=== PATIENT | female | born 1955 | race American Indian/Alaskan Native ===

== ENCOUNTER 2017-03-27 09:54 | Emergency (ER) | payer MEDICAID ==
--- NOTE | 2017-03-27 10:14 | Emergency Department Report ---
Chief Complaint: Syncope Stated Complaint: RIGHT LEG/BACK PAIN Time Seen by Provider: 03/27/17 10:10 - HPI History of Present Illness: PT c/o josé miguel sciatic nerve pain and syncope. PT states she passed out last night and today. PT states she was at home when she had her syncopal episodes. PT c/ o dizziness - ROS Review of Systems: + R buttocks pain + left leg pain + syncope + dizziness - cp + dry cough - Exam Physical Exam: PT ambulatory in triage with steady gait. PT alert and appropriate. MSE screening note: Focused history and physical exam performed. Due to findings the following was ordered: ekg, labs, ct ED Disposition for MSE Condition: Stable
[2017-03-27 11:04] LABS: Hematocrit 37.4 % (30.3-42.9); Hemoglobin 12.6 gm/dl (10.1-14.3); Mean Corpuscular HGB Conc 34 % (30-34); Mean Corpuscular Hemoglobin 33 pg (28-32); Mean Corpuscular Volume 97 fl (79-97); Platelet Count 335 K/mm3 (140-440); Red Blood Count 3.86 M/mm3 (3.65-5.03); Red Cell Distribution Width 13.8 % (13.2-15.2)
[2017-03-27 11:08] LABS: INR 0.97 (0.87-1.13)
[2017-03-27 11:09] LABS: Partial Thromboplastin Time 28.4 Sec. (24.2-36.6)
[2017-03-27 11:10] LABS: Alanine Aminotransferase 7 units/L (7-56); Albumin 3.9 g/dL (3.9-5); Alkaline Phosphatase 85 units/L (35-129); Anion Gap 19 mmol/L; BUN/Creatinine Ratio 7.69; Blood Urea Nitrogen 10 mg/dL (7-17); Calcium 9.2 mg/dL (8.4-10.2); Carbon Dioxide 25 mmol/L (22-30); Chloride 103.6 mmol/L (98-107); Glucose 77 mg/dL (65-100); Potassium 3.7 mmol/L (3.6-5.0); Sodium 144 mmol/L (137-145); Total Protein 7.8 g/dL (6.3-8.2)
[2017-03-27 11:16] LABS: White Blood Count 2.3 K/mm3 (4.5-11.0)
--- NOTE | 2017-03-27 11:59 | Cat Scan Report ---
CT scan of head without contrast: History: Syncope. Findings: Ventricles are normal in size and midline in location. No definite evidence of acute ischemia, hemorrhage or mass. No extra-axial fluid collection. Normal brainstem and cerebellum. Normal sinuses and mastoid air cells. Impression: No acute intracranial abnormality.
[2017-03-27 12:07] LABS: Blastocytes % (Manual) 0 %; Diff Status Complete; RBC Morphology Normal
[2017-03-27] MEDS ORDERED: KEPPRA PO ONE (12:13)
--- NOTE | 2017-03-27 12:21 | Emergency Department Report ---
ED Syncope HPI - General Chief Complaint: Syncope Stated Complaint: RIGHT LEG/BACK PAIN Time Seen by Provider: 03/27/17 10:10 Source: patient - History of Present Illness Initial Comments: 61-year-old female who presents emergency Department here with complaint of syncope last night. Patient states that she felt lightheaded and dizzy and syncopized. Currently denies headache or dizziness. States that she may have had a seizure. She states that she is taking her Keppra. Denies fevers chills nausea vomiting. No chest pain. No abdominal pain. States that this is happened to her multiple times before. Timing/Prior Episodes: no prior history Precipitating Factors: Positive: none Current Symptoms: denies: chest pain, dizziness, weakness ED Review of Systems ROS: Stated complaint: RIGHT LEG/BACK PAIN Other details as noted in HPI Comment: All other systems reviewed and negative Constitutional: weakness. denies: chills, fever Eyes: denies: eye pain, eye discharge, vision change ENT: denies: ear pain, throat pain Respiratory: denies: cough, shortness of breath, wheezing Cardiovascular: syncope. denies: chest pain, palpitations Endocrine: no symptoms reported Gastrointestinal: denies: abdominal pain, nausea, diarrhea Genitourinary: denies: urgency, dysuria, discharge Musculoskeletal: denies: back pain, joint swelling, arthralgia Skin: denies: rash, lesions Neurological: denies: headache, weakness, paresthesias Psychiatric: denies: anxiety, depression Hematological/Lymphatic: denies: easy bleeding, easy bruising ED Past Medical Hx - Past Medical History Hx Renal Disease: Yes Hx Seizures: Yes Hx Psychiatric Treatment: Yes (bipolar) Additional medical history: hiv - Surgical History Past Surgical History?: Yes Additional Surgical History: hernia, - Family History Family history: no significant - Social History Smoking Status: Never Smoker Substance Use Type: None ED Physical Exam - General Limitations: No Limitations General appearance: alert, in no apparent distress - Head Head exam: Present: atraumatic, normocephalic - Eye Eye exam: Present: normal appearance, PERRL. Absent: scleral icterus, conjunctival injection - ENT ENT exam: Present: mucous membranes moist - Neck Neck exam: Present: normal inspection. Absent: lymphadenopathy - Respiratory Respiratory exam: Present: normal lung sounds bilaterally. Absent: respiratory distress - Cardiovascular Cardiovascular Exam: Present: regular rate, normal rhythm. Absent: systolic murmur, diastolic murmur, rubs, gallop - GI/Abdominal GI/Abdominal exam: Present: soft, normal bowel sounds - Extremities Exam Extremities exam: Present: normal inspection - Back Exam Back exam: Present: normal inspection - Neurological Exam Neurological exam: Present: alert, oriented X3, CN II-XII intact, normal gait. Absent: motor sensory deficit - Psychiatric Psychiatric exam: Present: normal affect, normal mood - Skin Skin exam: Present: warm, dry, intact, normal color. Absent: rash ED Course Vital Signs 03/27/17 10:12 Temperature 98.3 F Pulse Rate 90 Respiratory 18 Rate Blood Pressure 96/67 O2 Sat by Pulse 98 Oximetry ED Medical Decision Making - Lab Data Result diagrams: 03/27/17 10:29 03/27/17 10:29 Laboratory Results - last 24 hr 03/27/17 03/27/17 03/27/17 10:29 10:29 10:29 WBC 2.3 L RBC 3.86 Hgb 12.6 Hct 37.4 MCV 97 MCH 33 H MCHC 34 RDW 13.8 Plt Count 335 Add Manual Diff Complete Total Counted 100 Seg Neuts % (Manual) 51.0 Band Neutrophils % 0 Lymphocytes % (Manual) 32.0 Reactive Lymphs % (Man) 2.0 Monocytes % (Manual) 13.0 H Eosinophils % (Manual) 2.0 Metamyelocytes % 0 Myelocytes % 0 Promyelocytes % 0 Blast Cells % 0 Nucleated RBC % Not Reportable Seg Neutrophils # Man 1.2 L Band Neutrophils # 0.0 Lymphocytes # (Manual) 0.7 L Abs React Lymphs (Man) 0.0 Monocytes # (Manual) 0.3 Eosinophils # (Manual) 0.0 Basophils # (Manual) 0.0 Metamyelocytes # 0.0 Myelocytes # 0.0 Promyelocytes # 0.0 Blast Cells # 0.0 WBC Morphology Not Reportable Hypersegmented Neuts Not Reportable Hyposegmented Neuts Not Reportable Hypogranular Neuts Not Reportable Smudge Cells Not Reportable Toxic Granulation Not Reportable Toxic Vacuolation Not Reportable Dohle Bodies Not Reportable Pelger-Huet Anomaly Not Reportable Keny Rods Not Reportable Platelet Estimate Appears normal Clumped Platelets Not Reportable Plt Clumps, EDTA Not Reportable Large Platelets Not Reportable Giant Platelets Not Reportable Platelet Satelliting Not Reportable Plt Morphology Comment Not Reportable RBC Morphology Normal Dimorphic RBCs Not Reportable Polychromasia Not Reportable Hypochromasia Not Reportable Poikilocytosis Not Reportable Anisocytosis Not Reportable Microcytosis Not Reportable Macrocytosis Not Reportable Spherocytes Not Reportable Pappenheimer Bodies Not Reportable Sickle Cells Not Reportable Target Cells Not Reportable Tear Drop Cells Not Reportable Ovalocytes Not Reportable Helmet Cells Not Reportable Headley-Rimini Bodies Not Reportable Tenstrike Rings Not Reportable Mariela Cells Not Reportable Bite Cells Not Reportable Crenated Cell Not Reportable Elliptocytes Not Reportable Acanthocytes (Spur) Not Reportable Rouleaux Not Reportable Hemoglobin C Crystals Not Reportable Schistocytes Not Reportable Malaria parasites Not Reportable Cedric Bodies Not Reportable Hem Pathologist Commnt No PT 13.4 INR 0.97 APTT 28.4 Sodium 144 Potassium 3.7 Chloride 103.6 Carbon Dioxide 25 Anion Gap 19 BUN 10 Creatinine 1.3 H Estimated GFR 51 BUN/Creatinine Ratio 7.69 Glucose 77 Calcium 9.2 Total Bilirubin 0.30 AST 15 ALT 7 Alkaline Phosphatase 85 Troponin T < 0.010 Total Protein 7.8 Albumin 3.9 Albumin/Globulin Ratio 1.0 - EKG Data -: EKG Interpreted by Mi - EKG Data 03/27/17 12:17 Sinus 81 normal axis and prolonged QTc of [address]-T wave changes - Medical Decision Making 61-year-old female presents to the emergency department with complaint of syncopal episode and questionable seizure. She has had multiple visits for this in the past. She appears well here in the emergency department. Labs unremarkable. EKG no concerning features. Likely discharge. EKG unremarkable chest x-ray unremarkable head CT negative. She is low risk for syncope. Plan to discharge home with follow-up. Portions of this chart were dictated with dictation software. There may be dictation errors contained within this note. Critical care attestation.: If time is entered above; I have spent that time in minutes in the direct care of this critically ill patient, excluding procedure time. ED Disposition Clinical Impression: Syncope Disposition: DC-01 TO HOME OR SELFCARE Is pt being admited?: No Condition: Stable Instructions: Syncope (ED) Additional Instructions: Follow-up with regular doctor. Make sure you take your seizure medications daily. Referrals: PRIMARY CARE, [Primary Care Provider] - 3-5 Days
--- NOTE | 2017-03-27 14:24 | XRay Report ---
Single view chest: History: Syncope. Findings: Cardiomegaly. Trachea is midline. No consolidation, pneumothorax or pleural effusion. Impression: Cardiomegaly. No acute lung changes.
[2017-03-27 15:38] VITALS: BP 110/70
== END 2017-03-27 15:00 | disposition home or self-care (01) ==
LOC: ED 09:54
DX: R55 Syncope and collapse (principal); F31.9 Bipolar disorder, unspecified; R56.9 Unspecified convulsions
CPT/HCPCS: 36415; 70450; 71010; 80053; 84484; 85007; 85025; 85610; 85730; 93005; 93010

== ENCOUNTER 2017-09-03 11:43 | Inpatient (IN) | payer MEDICAID, OTHER ==
[2017-09-03] MEDS ORDERED: ASPIRIN PO ONE (12:17)
[2017-09-03 14:01] LABS: Basophils # (Auto) 0.1 K/mm3 (0.0-0.1); Basophils % (Auto) 0.6 % (0.0-1.8); Eosinophils % (Auto) 0.1 % (0.0-4.3); Hematocrit 35.3 % (30.3-42.9); Hemoglobin 11.6 gm/dl (10.1-14.3); Lymphocytes # (Auto) 1.6 K/mm3 (1.2-5.4); Lymphocytes % (Auto) 10.7 % (13.4-35.0); Mean Corpuscular HGB Conc 33 % (30-34); Mean Corpuscular Hemoglobin 33 pg (28-32); Mean Corpuscular Volume 102 fl (79-97); Monocytes # (Auto) 0.6 K/mm3 (0.0-0.8); Monocytes % (Auto) 4.2 % (0.0-7.3); Platelet Count 319 K/mm3 (140-440); Red Blood Count 3.47 M/mm3 (3.65-5.03); Red Cell Distribution Width 14.6 % (13.2-15.2)
[2017-09-03 14:11] LABS: BUN/Creatinine Ratio 8; Blood Urea Nitrogen 9 mg/dL (7-17); Calcium 9.5 mg/dL (8.4-10.2); Hemolysis Index 2
--- NOTE | 2017-09-03 15:21 | Emergency Department Report ---
ED Syncope HPI - General Chief Complaint: Syncope Stated Complaint: FEVER/CHILLS/WEAKNESS/BODYACHES Time Seen by Provider: 09/03/17 15:21 Source: patient Exam Limitations: no limitations - History of Present Illness Timing/Prior Episodes: no prior history, single episode today Precipitating Factors: Positive: blurred vision, lightheadedness Context: standing, coughing Loss of Consciousness: brief (seconds) Current Symptoms: blurred vision, chest pain, dizziness, headache, lightheadedness - Related Data Allergies/Adverse Reactions: Allergies No Known Allergies Allergy (Unverified 03/27/17 15:39) ED Review of Systems ROS: Stated complaint: FEVER/CHILLS/WEAKNESS/BODYACHES Other details as noted in HPI Comment: All other systems reviewed and negative Constitutional: denies: chills, fever Eyes: denies: eye pain, eye discharge, vision change ENT: denies: ear pain, throat pain Respiratory: cough, shortness of breath. denies: wheezing Cardiovascular: chest pain, palpitations Endocrine: no symptoms reported Gastrointestinal: denies: abdominal pain, nausea, diarrhea Genitourinary: denies: urgency, dysuria, discharge Musculoskeletal: denies: back pain, joint swelling, arthralgia Skin: denies: rash, lesions Neurological: headache, weakness. denies: paresthesias Psychiatric: denies: anxiety, depression Hematological/Lymphatic: denies: easy bleeding, easy bruising ED Past Medical Hx - Past Medical History Previous Medical History?: Yes Hx Renal Disease: Yes Hx Seizures: Yes Hx Psychiatric Treatment: Yes (bipolar) Additional medical history: hiv - Surgical History Past Surgical History?: Yes Additional Surgical History: hernia, - Family History Family history: hypertension - Social History Smoking Status: Never Smoker Substance Use Type: None ED Physical Exam - General Limitations: No Limitations General appearance: alert, in no apparent distress - Head Head exam: Present: atraumatic, normocephalic - Eye Eye exam: Present: normal appearance - ENT ENT exam: Present: normal exam, mucous membranes moist - Neck Neck exam: Present: normal inspection - Respiratory Respiratory exam: Present: normal lung sounds bilaterally. Absent: respiratory distress - Cardiovascular Cardiovascular Exam: Present: regular rate, normal rhythm. Absent: systolic murmur, diastolic murmur, rubs, gallop - GI/Abdominal GI/Abdominal exam: Present: soft, normal bowel sounds - Extremities Exam Extremities exam: Present: normal inspection - Back Exam Back exam: Present: normal inspection - Neurological Exam Neurological exam: Present: alert, oriented X3 - Psychiatric Psychiatric exam: Present: normal affect, normal mood - Skin Skin exam: Present: warm, dry, intact, normal color. Absent: rash ED Course Vital Signs 09/03/17 09/03/17 12:12 17:50 Temperature 98.6 F Pulse Rate 100 H Respiratory 16 18 Rate Blood Pressure 125/77 O2 Sat by Pulse 98 98 Oximetry ED Medical Decision Making - Lab Data Result diagrams: 09/03/17 13:44 09/03/17 13:44 - EKG Data -: EKG Interpreted by Ms EKG shows normal: sinus rhythm Rate: normal - EKG Data Interpretation: no acute changes, normal EKG - Radiology Data Radiology results: report reviewed No acute process on head CT and chest x-ray - Medical Decision Making Patient is a 62-year-old female that presented to the emergency room with chest pain, shortness of breath and syncope. All labs and diagnostic review the patient. Will admit patient to the hospitalist service - Differential Diagnosis cp, sob, acs, pna, cough, bronchitis Critical care attestation.: If time is entered above; I have spent that time in minutes in the direct care of this critically ill patient, excluding procedure time. ED Disposition Clinical Impression: Syncope, Chest pain, SOB (shortness of breath), Bronchitis Disposition: 09 OP ADMIT IP TO THIS HOSP Is pt being admited?: Yes Does the pt Need Aspirin: No Condition: Serious Time of Disposition: 17:40
[2017-09-03] MEDS ORDERED: ASPIRIN ONE (15:47)
--- NOTE | 2017-09-03 16:33 | Cat Scan Report ---
FINAL REPORT PROCEDURE: CT HEAD/BRAIN WO CON TECHNIQUE: Computerized tomography of the head was performed without contrast material. HISTORY: Headache, syncope COMPARISON: No prior studies are available for comparison. FINDINGS: There is no CT evidence of intracranial hemorrhage, hydrocephalus, acute territorial infarction. The intracranial arteries are symmetric in density. There is a calcified density abutting the inner table of the left frontal skull, possibly a calcified meningioma. This measures up to 9 millimeters in maximum dimension. No underlying mass effect is seen on the left frontal lobe. No acute fracture is seen. The visualized paranasal sinuses and mastoids are aerated. IMPRESSION: Probable small left frontal meningioma. No underlying mass effect. No acute abnormality is seen
--- NOTE | 2017-09-03 16:54 | XRay Report ---
FINAL REPORT PROCEDURE: XR CHEST ROUTINE 2V TECHNIQUE: PA and lateral chest radiographs were obtained. CPT 73649 HISTORY: chest pain. sob COMPARISON: No prior studies are available for comparison. FINDINGS: Heart: Normal contour. Mediastinum/Vessels: Normal. Lungs/Pleural space: No infiltrate, effusion, or pneumothorax. Bony thorax: No acute osseous abnormality. Other: IMPRESSION: No pulmonary infiltrates are identified.
[2017-09-03] MEDS ORDERED: ROCEPHIN/NS 1 GM/50 ML 1 GM/50 ML BAG IV ONE (18:13)
[2017-09-03] MEDS ORDERED: cefTRIAXone 1 GM in NACL 0.9% 20 ML IV ONE (19:00)
[2017-09-03] MEDS ORDERED: PEPCID IV ONE (19:35)
--- NOTE | 2017-09-03 22:52 | History and Physical Report ---
History of Present Illness Date of examination: 09/03/17 Date of admission: 09/03/17 18:45 Chief complaint: CC Syncope fever and chills 1 day History of present illness: History of Present Illness: 62 y/o female with hx of seizures bipolar disorder hiv presents to ER for passing out for a few seconds .Also has fever chills and body aches.Also cough headache and light headed ness.Chest pain with deep inspiration and coughing.No diaohoresis or palpitations. No exacerbating or relieving factors. Past Medical History Previous Medical History?: Yes Hx Seizures: Yes Hx Psychiatric Treatment: Yes (bipolar) Additional medical history: hiv Surgical History Past Surgical History?: Yes Additional Surgical History: hernia, Family History Family history: hypertension Social History Smoking Status: Never Smoker Substance Use Type: None Review of Systems Stated complaint: FEVER/CHILLS/WEAKNESS/BODYACHES Other details as noted in HPI Comment: All other systems reviewed and negative Constitutional: denies: chills, fever Eyes: denies: eye pain, eye discharge, vision change ENT: denies: ear pain, throat pain Respiratory: cough, shortness of breath. denies: wheezing Cardiovascular: chest pain, palpitations Endocrine: no symptoms reported Gastrointestinal: denies: abdominal pain, nausea, diarrhea Genitourinary: denies: urgency, dysuria, discharge Musculoskeletal: denies: back pain, joint swelling, arthralgia Skin: denies: rash, lesions Neurological: headache, weakness. denies: paresthesias Psychiatric: denies: anxiety, depression Hematological/Lymphatic: denies: easy bleeding, easy bruising Medications and Allergies Allergies Allergy/AdvReac Type Severity Reaction Status Date / Time No Known Allergies Allergy Unverified 03/27/17 15:39 Home Medications Medication Instructions Recorded Confirmed Last Taken Type Gabapentin [Neurontin] 300 mg PO Q8HR 09/03/17 09/03/17 Unknown History Quetiapine Fumarate [Seroquel Xr] 600 mg PO QHS 09/03/17 09/03/17 Unknown History Ranitidine HCl [Heartburn Relief] 150 mg PO BID 09/03/17 09/03/17 Unknown History Trazodone HCl [traZODone] 300 mg PO QHS 09/03/17 09/03/17 Unknown History Active Meds: Active Medications Enoxaparin Sodium (Lovenox) 40 mg SUB-Q QDAY KSENIA Exam - Constitutional Vitals: Temp Pulse Resp BP Pulse Ox 98.8 F 88 18 108/75 96 09/03/17 19:47 09/03/17 19:47 09/03/17 19:47 09/03/17 19:47 09/03/17 19:47 General appearance: Present: no acute distress, well-nourished - EENT Eyes: Present: PERRL ENT: hearing intact, clear oral mucosa - Neck Neck: Present: supple, normal ROM - Respiratory Respiratory effort: normal Respiratory: bilateral: CTA - Cardiovascular Heart rate: 80 Rhythm: regular Heart Sounds: Present: S1 & S2. Absent: rub, click - Extremities Extremities: no ischemia, pulses intact, pulses symmetrical, No edema Peripheral Pulses: within normal limits - Abdominal General gastrointestinal: Present: soft, non-tender, non-distended, normal bowel sounds Female genitourinary: Present: normal - Rectal Rectal Exam: deferred - Integumentary Integumentary: Present: clear, warm, dry - Musculoskeletal Musculoskeletal: gait normal, strength equal bilaterally - Psychiatric Psychiatric: appropriate mood/affect, intact judgment & insight - Neurologic Neurologic: CNII-XII intact, moves all extremities - Allied Health Allied health notes reviewed: nursing, case management Results - Labs CBC & Chem 7: 09/03/17 13:44 09/03/17 13:44 Labs: Laboratory Last Values WBC 15.0 K/mm3 (4.5-11.0) H 09/03/17 13:44 RBC 3.47 M/mm3 (3.65-5.03) L 09/03/17 13:44 Hgb 11.6 gm/dl (10.1-14.3) 09/03/17 13:44 Hct 35.3 % (30.3-42.9) 09/03/17 13:44 MCV 102 fl (79-97) H 09/03/17 13:44 MCH 33 pg (28-32) H 09/03/17 13:44 MCHC 33 % (30-34) 09/03/17 13:44 RDW 14.6 % (13.2-15.2) 09/03/17 13:44 Plt Count 319 K/mm3 (140-440) 09/03/17 13:44 Lymph % (Auto) 10.7 % (13.4-35.0) L 09/03/17 13:44 [place] % (Auto) 4.2 % (0.0-7.3) 09/03/17 13:44 Eos % (Auto) 0.1 % (0.0-4.3) 09/03/17 13:44 Baso % (Auto) 0.6 % (0.0-1.8) 09/03/17 13:44 Lymph # 1.6 K/mm3 (1.2-5.4) 09/03/17 13:44 [place] # 0.6 K/mm3 (0.0-0.8) 09/03/17 13:44 Eos # 0.0 K/mm3 (0.0-0.4) 09/03/17 13:44 Baso # 0.1 K/mm3 (0.0-0.1) 09/03/17 13:44 Seg Neutrophils % 84.4 % (40.0-70.0) H 09/03/17 13:44 Seg Neutrophils # 12.7 K/mm3 (1.8-7.7) H 09/03/17 13:44 D-Dimer 186.39 ng/mlDDU (0-234) 09/03/17 16:00 Sodium 136 mmol/L (137-145) L 09/03/17 13:44 Potassium 4.9 mmol/L (3.6-5.0) 09/03/17 13:44 Chloride 96.0 mmol/L (98-107) L 09/03/17 13:44 Carbon Dioxide 25 mmol/L (22-30) 09/03/17 13:44 Anion Gap 20 mmol/L 09/03/17 13:44 BUN 9 mg/dL (7-17) 09/03/17 13:44 Creatinine 1.2 mg/dL (0.7-1.2) 09/03/17 13:44 Estimated GFR 55 ml/min 09/03/17 13:44 BUN/Creatinine Ratio 8 % 09/03/17 13:44 Glucose 83 mg/dL (65-100) 09/03/17 13:44 Calcium 9.5 mg/dL (8.4-10.2) 09/03/17 13:44 Troponin T < 0.010 ng/mL (0.00-0.029) 09/03/17 18:05 NT-Pro-B Natriuret Pep 75.41 pg/mL (0-900) 09/03/17 16:00 Short CBC 09/03/17 Range/Units 13:44 WBC 15.0 H (4.5-11.0) K/mm3 Hgb 11.6 (10.1-14.3) gm/dl Hct 35.3 (30.3-42.9) % Plt Count 319 (140-440) K/mm3 BMP 09/03/17 13:44 Sodium 136 L Potassium 4.9 Chloride 96.0 L Carbon Dioxide 25 BUN 9 Creatinine 1.2 Glucose 83 Calcium 9.5 Cardiac Enzymes 09/03/17 09/03/17 09/03/17 Range/Units 13:44 16:00 18:05 Troponin T < 0.010 < 0.010 < 0.010 (0.00-0.029) ng/mL - Imaging and Cardiology EKG: report reviewed Chest x-ray: report reviewed (NAF) Assessment and Plan Advance Directives: Yes (Full code) VTE prophylaxis?: Chemical Plan of care discussed with patient/family: Yes - Patient Problems (1) Syncope Current Visit: Yes Status: Acute Qualifiers: Syncope type: unspecified Qualified Code(s): R55 - Syncope and collapse Plan to address problem: Syncope w/u CDSECHOand Lexiscan in AM (2) Bronchitis Current Visit: Yes Status: Acute Plan to address problem: IV Levaquin and duonebs. No Solumedrol (3) Seizure disorder Current Visit: Yes Status: Chronic Plan to address problem: On Gabapentin (4) DVT prophylaxis Current Visit: Yes Status: Acute Plan to address problem: On Lovenox
[2017-09-04] MEDS ORDERED: TYLENOL PO PRN (00:44)
[2017-09-04] MEDS ORDERED: MILK OF MAGNESIA PO PRN (00:44)
[2017-09-04] MEDS ORDERED: ZOFRAN IV PRN (00:44)
[2017-09-04] MEDS ORDERED: DULCOLAX PR PRN (00:44)
[2017-09-04] MEDS ORDERED: MORPHINE IV PRN (00:45)
[2017-09-04] MEDS ORDERED: DILAUDID IV PRN (00:45)
[2017-09-04] MEDS ORDERED: PERCOCET 5/325 PO PRN (00:45)
[2017-09-04] MEDS ORDERED: AMBIEN PO PRN (00:45)
[2017-09-04] MEDS ORDERED: D5NS 1,000 ML IV SCH (01:00)
[2017-09-04] MEDS: NEURONTIN PO SCH ×3 (02:13→19:18)
[2017-09-04] MEDS: DUONEB *Not for PRN Use IH SCH ×4 (06:03→21:49)
[2017-09-04] MEDS ORDERED: cefTRIAXone 2 GM in NACL 0.9% 20 ML IV SCH (10:00)
[2017-09-04] MEDS ORDERED: LEXISCAN IV ONE (10:41)
[2017-09-04] MEDS: ZITHROMAX 500 MG in NACL 0.9% 250ML 250 ML IV SCH (12:54)
[2017-09-04] MEDS: LOVENOX SUB-Q SCH (12:54)
[2017-09-04] MEDS: PEPCID PO SCH ×2 (12:55→22:55)
--- NOTE | 2017-09-04 14:52 | Progress Note ---
Assessment and Plan /Syncope Syncope w/u ordered likely vasovagal follow 2d ECHO result and s/p Lexiscan in AM - results pending CT head unremarkable /Acute asthmatic Bronchitis IV Levaquin and duonebs. low dose Solumedrol /Seizure disorder On Gabapentin /DVT prophylaxis On Lovenox Brief history: 62 y/o female with hx of seizures bipolar disorder hiv presents to ER for passing out for a few seconds. She also c/o cough fever chills and body aches. Hospitalist Physical exam: GENERAL: well-developed obese female lying on bed appeared to be in no discomfort. HEENT: Normocephalic. Atraumatic. No conjunctival congestion or icterus. Patient has moist mucous membranes. NECK: Supple. Trachea midline. CHEST/LUNGS: + wheezes auscultated bilaterally, breathing nonlabored. No crackles or rhonchi. HEART/CARDIOVASCULAR: Regular in rate and rhythm. S1 and S2 positive. ABDOMEN: Abdomen is soft, nontender. Patient has normal bowel sounds. SKIN: There is no rash. Warm and dry. NEURO: No focal motor deficit. Follows command. MUSCULOSKELETAL: No joint effusion or tenderness. EXTRIMITY: No edema, no cyanosis or clubbing. PSYCH: Cooperative. Subjective Date of service: 09/04/17 Interval history: Patient seen and examined. Medical records and medication list reviewed. No acute event overnight noted by the RN. Patient c/o cough and wheezing. Patient is tolerating diet. s/p stress test today Discussed plan of care at bedside with patient. Objective - Constitutional Vitals: Vital Signs - 12hr 09/04/17 09/04/17 09/04/17 08:00 10:26 11:29 Temperature 98.2 F Pulse Rate 91 H 86 108 H Respiratory 20 Rate Blood Pressure 145/97 155/72 Blood Pressure 154/80 [Left] O2 Sat by Pulse 95 Oximetry 09/04/17 09/04/17 09/04/17 11:30 11:31 11:32 Temperature Pulse Rate 107 H 103 H 98 H Respiratory Rate Blood Pressure 166/103 173/104 163/104 Blood Pressure [Left] O2 Sat by Pulse Oximetry 09/04/17 11:33 Temperature Pulse Rate 98 H Respiratory Rate Blood Pressure 166/95 Blood Pressure [Left] O2 Sat by Pulse Oximetry - Labs CBC & Chem 7: 09/03/17 13:44 09/03/17 13:44
[2017-09-04] MEDS: cefTRIAXone 2 GM in NACL 0.9% 20 ML IV SCH (20:02)
[2017-09-04] MEDS: DESYREL PO SCH (22:55)
[2017-09-05] MEDS: DUONEB *Not for PRN Use IH SCH ×4 (02:29→19:52)
[2017-09-05] MEDS: NEURONTIN PO SCH ×3 (02:42→18:30)
--- NOTE | 2017-09-05 02:43 | Treadmill Report ---
THALLIUM STRESS TEST LEFT VENTRICLE: Left ventricular chamber size is within normal spread. Perfusion study demonstrates homogeneous uptake of the tracer in all segments, no significant perfusion defects identified. Gated analysis demonstrates normal left ventricular systolic function, ejection fraction is 65%. CONCLUSION: Normal myocardial perfusion study. JOB# [id number] CA/NTS
[2017-09-05 06:51] LABS: Basophils % (Auto) 0.5 % (0.0-1.8); Eosinophils % (Auto) 0.1 % (0.0-4.3); Hematocrit 35.5 % (30.3-42.9); Hemoglobin 11.7 gm/dl (10.1-14.3); Lymphocytes # (Auto) 1.9 K/mm3 (1.2-5.4); Lymphocytes % (Auto) 24.3 % (13.4-35.0); Mean Corpuscular HGB Conc 33 % (30-34); Mean Corpuscular Hemoglobin 34 pg (28-32); Mean Corpuscular Volume 103 fl (79-97); Monocytes # (Auto) 0.6 K/mm3 (0.0-0.8); Monocytes % (Auto) 7.2 % (0.0-7.3); Platelet Count 321 K/mm3 (140-440); Red Blood Count 3.45 M/mm3 (3.65-5.03); Red Cell Distribution Width 14.9 % (13.2-15.2)
[2017-09-05 07:13] LABS: Alanine Aminotransferase 7 units/L (7-56); BUN/Creatinine Ratio 17; Blood Urea Nitrogen 17 mg/dL (7-17); Hemolysis Index 5
[2017-09-05] MEDS: PEPCID PO SCH ×2 (09:33→21:24)
[2017-09-05] MEDS: LOVENOX SUB-Q SCH (09:33)
[2017-09-05] MEDS: ZITHROMAX 500 MG in NACL 0.9% 250ML 250 ML IV SCH (10:27)
--- NOTE | 2017-09-05 11:37 | Consultation ---
History of Present Illness Consult date: 09/05/17 Requesting physician: ARIC ESTRADA Reason for Consult: syncope History of present illness: This 62 year old left handed female with history of bipolar disorder, HIV, seizure disorder, hypertension was found unconscious on the floor of her room, in the transitional home where she lives. She feels she may have been out for several minutes. She does not recall injuring herself and did not lose bladder or bowel control. She does recall a slight bite cynthia on her lip at the time. Other reasons surrounding this admission include persistent dry cough for several weeks, feelings of fever and chills, headaches for the past month associated with the cough, responsive to Ibuprofen. Headaches are 10/10 in severity. When she takes the ibuprofen, they are relieved in 30 min. They will last longer if she does not take the medicine. They are frontal in location. She reports that she has seizures once per month and she knows this when she awakens with incontinence. She takes Keppra for seizures. Neurontin for sciatic pain. Past History Past Medical History: GERD, HIV/AIDS, hypertension, seizures, other (bipolar disorder) Social history: other (lives in a transitional home) Medications and Allergies Allergies Allergy/AdvReac Type Severity Reaction Status Date / Time No Known Allergies Allergy Unverified 03/27/17 15:39 Home Medications Medication Instructions Recorded Confirmed Last Taken Type Gabapentin [Neurontin] 300 mg PO Q8HR 09/03/17 09/03/17 Unknown History Quetiapine Fumarate [Seroquel Xr] 600 mg PO QHS 09/03/17 09/03/17 Unknown History Ranitidine HCl [Heartburn Relief] 150 mg PO BID 09/03/17 09/03/17 Unknown History Trazodone HCl [traZODone] 300 mg PO QHS 09/03/17 09/03/17 Unknown History Active Meds: Active Medications Acetaminophen (Tylenol) 650 mg PO Q4H PRN PRN Reason: Pain MILD(1-3)/Fever >100.5/YATES Albuterol/Ipratropium (Duoneb *Not For Prn Use*) 1 ampul IH Q6HRT [facility] Last Admin: 09/05/17 07:43 Dose: 1 ampul Bisacodyl (Dulcolax) 10 mg [place] QDAY PRN PRN Reason: Constipation unrelieved by MOM Enoxaparin Sodium (Lovenox) 40 mg SUB-Q QDAY [facility] Last Admin: 09/05/17 09:33 Dose: 40 mg Famotidine (Pepcid) 20 mg PO BID [facility] Last Admin: 09/05/17 09:33 Dose: 20 mg Gabapentin (Neurontin) 300 mg PO Q8H [facility] Last Admin: 09/05/17 09:33 Dose: 300 mg Hydromorphone HCl (Dilaudid) 0.5 mg IV Q3H PRN PRN Reason: Pain , Severe (7-10) Azithromycin 500 mg/ Sodium (Chloride) 250 mls @ 250 mls/hr IV Q24H [facility] Last Admin: 09/05/17 10:27 Dose: 250 mls/hr Ceftriaxone Sodium 2 gm/ (Sodium Chloride) 20 mls @ 20 mls/10 min IV Q24H [facility] PRN Reason: Protocol Last Admin: 09/04/17 20:02 Dose: 20 mls/10 min Magnesium Hydroxide (Milk Of Magnesia) 30 ml PO Q4H PRN PRN Reason: Constipation Morphine Sulfate (Morphine) 2 mg IV Q4H PRN PRN Reason: Pain, Moderate (4-6) Ondansetron HCl (Zofran) 4 mg IV Q8H PRN PRN Reason: N/V unrelieved by Reglan Oxycodone/Acetaminophen (Percocet 5/325) 1 tab PO Q6H PRN PRN Reason: Pain, Moderate (4-6) Pneumococcal Polyvalent Vaccine (Pneumovax 23) 0.5 ml IM .ONCE ONE Stop: 09/05/17 12:01 Quetiapine Fumarate (Seroquel) 300 mg PO Q12H [facility] Last Admin: 09/05/17 09:33 Dose: 300 mg Trazodone HCl (Desyrel) 300 mg PO QHS [facility] Last Admin: 09/04/17 22:55 Dose: 300 mg Zolpidem Tartrate (Ambien) 5 mg PO QHS PRN PRN Reason: Insomnia Review of Systems Constitutional: fever, chills, sweats, weakness, chronic headaches, chronic pain Eyes: left: diplopia (diplopia on left gaze), bilateral: blurred vision Ears, nose, mouth and throat: no ear pain, no decreased hearing, no sinus pressure Cardiovascular: chest pain, syncope, shortness of breath Respiratory: cough, shortness of breath Gastrointestinal: nausea, vomiting, constipation, no abdominal pain Genitourinary Female: other (incontinence with seizures) Musculoskeletal: other (knee pain, sciatica) Neurological: seizures, syncope, headaches, gait dysfunction (dx of bipolar disorder) Physical Examination - Vital Signs Vital Signs: Vital Signs Temp Pulse Resp BP Pulse Ox 98.6 F 100 H 16 125/77 98 09/03/17 12:12 09/03/17 12:12 09/03/17 12:12 09/03/17 12:12 09/03/17 12:12 - Constitutional General appearance: comfortable - EENT EENT: Present: PERRL, mucous membranes moist, hearing intact, vision intact - Respiratory Respiratory: Present: lungs clear, normal breath sounds - Cardiovascular Cardiovascular: Present: regular rate, normal S1, normal S2, no murmurs Extremities: Present: no peripheral edema bilatateraly - Gastrointestinal Gastrointestinal: Present: soft, non-tender - Integumentary Integumentary: Present: normal. Absent: rash, cellulitis - Neurologic Cranial nerve examination: PERRL, EOMI (Notes double vision on left gaze.), V1/ V2/V3 grossly intact, face symmetric, tongue midline (no apparent oral lesions.) Speech examination: intact (mild give-way weakness on right) Sensorimotor examination: intact Detailed motor examination: full strength in all mabel Motor examination - right side: 5/5: wrist flexion, wrist extension, mattress and foundation sewer, hip flexors, knee extensors Motor examination - left side: 5/5: wrist flexion, wrist extension, mattress and foundation sewer, hip flexors, knee extensors Detailed sensory examination: intact, light touch Reflex and gait examination: intact (uses a walker for balance and stability) Reflexes: 0: bicep, tricep, 1+: ankle, 2+: knee Cerebellar examination: other (No dysmetria, past pointing, nystagmus.) - Musculoskeletal Musculoskeletal: Present: no fluid collection, no pain, normal range of motion - Psychiatric Psychiatric: Present: mood/affect appropriate Results - Laboratory Findings CBC and BMP: 09/05/17 04:50 09/05/17 04:50 Abnormal Lab Findings: Abnormal Labs CT brain reveals probable left frontal meningioma, echocardiogram reveals EF of 50 to 60%, no thrombi or vegetations, carotid doplar reveals less than 50% stenosis. stress test OK. 09/03/17 09/03/17 09/05/17 13:44 13:44 04:50 WBC 15.0 H RBC 3.47 L 3.45 L MCV 102 H 103 H MCH 33 H 34 H Lymph % (Auto) 10.7 L Seg Neutrophils % 84.4 H Seg Neutrophils # 12.7 H Sodium 136 L Chloride 96.0 L Assessment and Plan 62 year old female with diagnoses of seizure disorder, hypertension, sciatic pain, HIV, bipolar disorder, probable bronchitis on antibiotics. CT scan suggestive of left frontal meningioma. Her event on 09/03/2017 may have been a seizure as the patient does not remember receiving her Keppra lately. A febrile illness can lower seizure threshold as well. Plan - Will restart Keppra at 500 mg BID. She does not recall the dose she was taking. EEG MRI scan of brain with contrast.
[2017-09-05] MEDS ORDERED: PNEUMOVAX 23 IM ONE (12:00)
--- NOTE | 2017-09-05 12:22 | Progress Note ---
Assessment and Plan Assessment and plan: Patient is a 62-year-old woman with history of bipolar disorder, HIV, seizure disorder and hypertension was found unconscious on the floor on her room in the transitional home. Stress test reported as normal Chest x-ray reveals no acute findings CT head: probable small left frontal meningoma, no acute finding ECHO: concentric LVH, EF 55-60%, trace MR, mild TR, mild pulmonary hypertension , RVSP 33 mmhg Syncope Syncope w/u ordered likely vasovagal Acute asthmatic Bronchitis IV Levaquin and duonebs. low dose Solumedrol Seizure disorder On Gabapentin H/o HIV - not on any home meds Bipolar disorder - resume home meds DVT prophylaxis: on sq Lovenox New issues: "10:00 AM Received telephone call from physical therapist who report when walking with patient this am oxygen saturation dropped to 80% on room air, and heart rate increased to 145/min. Patient assisted back to room and to bed oxgen 2L via NC in use and oxygen saturation increased to 99%. Patient then placed back on room air. Patient she desat to 80% on activity." per RN. -Most likely Acute hypoxic respiratory failure due to asthmatic bronchitis, poa , see above: treat with O2 Consulted Pulmonology Consulted Infectious Disease -Brain Meningoma suspected, consulted Neurology to see if this is related to the syncope History Interval history: Patient was seen and examined. Follow-up on current diagnosis. Overnight uneventful. Patient denies any chest pain, nausea/vomiting or severe headaches. Imaging, nursing note, chart, labs and old chart reviewed. Discussed with patient. Patient main complaint is cough which is now productive phlegm. Patient has had a nonproductive cough for last 3 weeks. Hospitalist Physical - Physical exam Narrative exam: GEN: WDWN, NAD, AWAKE, ALERT, ORIENTATED 3, BMI of 40.5 HEENT: NCAT, EOMI, PERRL, OP Clear NECK: supple, no adenopathy, no thyromegaly, no JVD CVS/HEART: RRR, NORMAL S1S2, NO JVD, pulses present bilaterally CHEST/LUNGS: expiratory wheezing, Symmetrical chest expansion, diminished air entry bilaterally GI/Abdomen: soft, NTND, good bowel sounds, no guarding or rebound /Bladder: no suprapubic tenderness, no CVA or paraspinal tenderness EXT/Skin: no c/c/e, no obvious rash MSK: FROM x 4 Neuro: CN 2-12 grossly intact, no new focal deficits Psych: calm - Constitutional Vitals: Temp Pulse Resp BP Pulse Ox 98.2 F 78 17 131/89 96 09/05/17 07:32 09/05/17 07:44 09/05/17 07:44 09/05/17 07:32 09/05/17 07:32 General appearance: Present: no acute distress, well-nourished Results - Labs CBC & Chem 7: 09/05/17 04:50 09/05/17 04:50 Labs: Laboratory Last Values WBC 7.8 K/mm3 (4.5-11.0) 09/05/17 04:50 RBC 3.45 M/mm3 (3.65-5.03) L 09/05/17 04:50 Hgb 11.7 gm/dl (10.1-14.3) 09/05/17 04:50 Hct 35.5 % (30.3-42.9) 09/05/17 04:50 MCV 103 fl (79-97) H 09/05/17 04:50 MCH 34 pg (28-32) H 09/05/17 04:50 MCHC 33 % (30-34) 09/05/17 04:50 RDW 14.9 % (13.2-15.2) 09/05/17 04:50 Plt Count 321 K/mm3 (140-440) 09/05/17 04:50 Lymph % (Auto) 24.3 % (13.4-35.0) 09/05/17 04:50 Roberts % (Auto) 7.2 % (0.0-7.3) 09/05/17 04:50 Eos % (Auto) 0.1 % (0.0-4.3) 09/05/17 04:50 Baso % (Auto) 0.5 % (0.0-1.8) 09/05/17 04:50 Lymph # 1.9 K/mm3 (1.2-5.4) 09/05/17 04:50 Roberts # 0.6 K/mm3 (0.0-0.8) 09/05/17 04:50 Eos # 0.0 K/mm3 (0.0-0.4) 09/05/17 04:50 Baso # 0.0 K/mm3 (0.0-0.1) 09/05/17 04:50 Seg Neutrophils % 67.9 % (40.0-70.0) 09/05/17 04:50 Seg Neutrophils # 5.3 K/mm3 (1.8-7.7) 09/05/17 04:50 D-Dimer 186.39 ng/mlDDU (0-234) 09/03/17 16:00 Sodium 142 mmol/L (137-145) 09/05/17 04:50 Potassium 4.2 mmol/L (3.6-5.0) 09/05/17 04:50 Chloride 101.5 mmol/L (98-107) 09/05/17 04:50 Carbon Dioxide 26 mmol/L (22-30) 09/05/17 04:50 Anion Gap 19 mmol/L 09/05/17 04:50 BUN 17 mg/dL (7-17) 09/05/17 04:50 Creatinine 1.0 mg/dL (0.7-1.2) 09/05/17 04:50 Estimated GFR > 60 ml/min 09/05/17 04:50 BUN/Creatinine Ratio 17 % 09/05/17 04:50 Glucose 94 mg/dL (65-100) 09/05/17 04:50 Calcium 9.0 mg/dL (8.4-10.2) 09/05/17 04:50 Total Bilirubin < 0.20 mg/dL (0.1-1.2) 09/05/17 04:50 AST 13 units/L (5-40) 09/05/17 04:50 ALT 7 units/L (7-56) 09/05/17 04:50 Alkaline Phosphatase 89 units/L (35-129) 09/05/17 04:50 Troponin T < 0.010 ng/mL (0.00-0.029) 09/04/17 12:17 NT-Pro-B Natriuret Pep 75.41 pg/mL (0-900) 09/03/17 16:00 Total Protein 7.6 g/dL (6.3-8.2) 09/05/17 04:50 Albumin 4.0 g/dL (3.9-5) 09/05/17 04:50 Albumin/Globulin Ratio 1.1 % 09/05/17 04:50
--- NOTE | 2017-09-05 15:20 | Consultation ---
History of Present Illness - Reason for Consult Consult date: 09/05/17 hiv Requesting physician: EDISON LANGFORD - History of Present Illness 62 years old female with history of seizures, bipolar disorder and HIV infection since 1995, she follows up at [facility], currently on triumeq, she stopped it 4 days ago since admission; she was admitted on 09/03/17 due to 3 week history of sore throat, body aches, cough with yellowish sputum production, frontal headaches, nausea, vomiting, diarrhea and chills. Reports subjective fever. Patient has been complaining of on and off near syncope episodes of seconds in duration. She denies any seizure activity. She also c/o chest pain 6/10 with deep inspiration. In the emergency room, initial temperature was 98.6, heart rate 100, respirations 16, O2 sat 98, blood pressure 125/77. Initial white count 15. Hemoglobin 11.6. Latest 319. Creatinine 1.2. CT of the head showed left frontal meningioma. Chest x-ray show no consolidations. Microbiology: Influenza A&B negative Current Antimicrobials: Ceftriaxone Azithro Previous Antimicrobials: Past History Past Medical History: GERD, HIV/AIDS, hypertension, seizures, other (bipolar disorder) Social history: other (lives in a transitional home) Medications and Allergies Allergies Allergy/AdvReac Type Severity Reaction Status Date / Time No Known Allergies Allergy Unverified 03/27/17 15:39 Home Medications Medication Instructions Recorded Confirmed Last Taken Type Gabapentin [Neurontin] 300 mg PO Q8HR 09/03/17 09/03/17 Unknown History Quetiapine Fumarate [Seroquel Xr] 600 mg PO QHS 09/03/17 09/03/17 Unknown History Ranitidine HCl [Heartburn Relief] 150 mg PO BID 09/03/17 09/03/17 Unknown History Trazodone HCl [traZODone] 300 mg PO QHS 09/03/17 09/03/17 Unknown History Active Meds: Active Medications Acetaminophen (Tylenol) 650 mg PO Q4H PRN PRN Reason: Pain MILD(1-3)/Fever >100.5/YATES Albuterol/Ipratropium (Duoneb *Not For Prn Use*) 1 ampul IH Q6HRT [facility] Last Admin: 09/05/17 13:34 Dose: 1 ampul Azithromycin (Zithromax) 500 mg PO QDAY [facility] Bisacodyl (Dulcolax) 10 mg [place] QDAY PRN PRN Reason: Constipation unrelieved by MOM Enoxaparin Sodium (Lovenox) 40 mg SUB-Q QDAY [facility] Last Admin: 09/05/17 09:33 Dose: 40 mg Famotidine (Pepcid) 20 mg PO BID [facility] Last Admin: 09/05/17 09:33 Dose: 20 mg Gabapentin (Neurontin) 300 mg PO Q8H [facility] Last Admin: 09/05/17 09:33 Dose: 300 mg Hydromorphone HCl (Dilaudid) 0.5 mg IV Q3H PRN PRN Reason: Pain , Severe (7-10) Ceftriaxone Sodium 2 gm/ (Sodium Chloride) 20 mls @ 20 mls/10 min IV Q24H [facility] PRN Reason: Protocol Last Admin: 09/04/17 20:02 Dose: 20 mls/10 min Levetiracetam (Keppra) 500 mg PO BID [facility] Magnesium Hydroxide (Milk Of Magnesia) 30 ml PO Q4H PRN PRN Reason: Constipation Morphine Sulfate (Morphine) 2 mg IV Q4H PRN PRN Reason: Pain, Moderate (4-6) Ondansetron HCl (Zofran) 4 mg IV Q8H PRN PRN Reason: N/V unrelieved by Reglan Oxycodone/Acetaminophen (Percocet 5/325) 1 tab PO Q6H PRN PRN Reason: Pain, Moderate (4-6) Quetiapine Fumarate (Seroquel) 300 mg PO Q12H [facility] Last Admin: 09/05/17 09:33 Dose: 300 mg Trazodone HCl (Desyrel) 300 mg PO QHS [facility] Last Admin: 09/04/17 22:55 Dose: 300 mg Zolpidem Tartrate (Ambien) 5 mg PO QHS PRN PRN Reason: Insomnia Review of Systems All systems: negative (as per HPI rest of 10 point review systems negative) Physical Examination - Physical Exam Narrative exam: General appearance: Alert in NAD, conversant Eyes: anicteric sclerae, moist conjunctivae; no lid-lag; PERRLA HENT: Atraumatic; oropharynx clear Neck: Trachea midline; supple, no thyromegaly or lymphadenopathy Lungs: scattered rhonchi CV: RRR Abdomen: Soft, non-tender; no masses or hepatosplenomegaly Extremities: No peripheral edema or extremity lymphadenopathy Skin: Normal temperature, turgor and texture; no rash, ulcers or subcutaneous nodules Psych: Appropriate affect, alert and oriented to person, place and time. Neuro: alert and oriented x 3. Moving all extermities Lines: No CVL / PICC - Constitutional Vitals: Vital Signs Temp Pulse Resp BP Pulse Ox 98.3 F 76 17 106/49 97 09/05/17 11:20 09/05/17 13:36 09/05/17 13:36 09/05/17 11:20 09/05/17 11:20 Temperature -Last 24 Hours Temperature 98.3 F Temperature 98.2 F Temperature 98.0 F Temperature 97.9 F Temperature 98.4 F Temperature 98.6 F Results - Labs CBC & Chem 7: 09/05/17 04:50 09/05/17 04:50 Labs: Abnormal lab results 09/05/17 Range/Units 04:50 RBC 3.45 L (3.65-5.03) M/mm3 MCV 103 H (79-97) fl MCH 34 H (28-32) pg Assessment and Plan Assessment: 1) Sepsis: Present on admission, manifested by tachycardia, leukocytosis. Etiology most likely influenza-like syndrome. 2) Influenza-like syndrome / bronchitis: patient with 3 weeks of symptoms. CXR negative. No fever and leukocytosis already better 3) History of seizures, 4) History of bipolar disorder 5) HIV infection since 1995, she follows up at [facility], currently on triumeq, she stopped it 4 days ago since admission 6) Nausea, vomiting, diarrhea -resolved 7) Near syncope: CT of the head showed left frontal meningioma. Chest x-ray show no consolidations. Plan: -C-reactive protein (CRP) -continue azithromycin and ceftriaxone day 2 of 5 -upon discharge will do levaquin 750 mg PO q day x 5 days total -continue triumeq alternative - abacavir + lamivudine + raltegravir -upon discharge pt is to re-start triumeq -if clinically better ok to d/c home and HIV clinic f/u in [address] Langford for your consultation, will follow up with you. Jackie Rangel MD Infectious Diseases Specialist [facility] M [phone] O [phone]
[2017-09-05] MEDS ORDERED: ATIVAN IV ONE (15:39)
--- NOTE | 2017-09-05 19:18 | Magnetic Resonance Report ---
FINAL REPORT EXAM: MR BRAIN WO/W CON HISTORY: Seizure disorder. Recent syncopal event. TECHNIQUE: Multiplanar multisequence pre and post gadolinium MR images the brain were performed. 15 mL MultiHance was utilized for contrast administration. Maximum sedation was given to the patient per the technologist. Comparison: CT brain 09/03/2017 at which time a 9 millimeter left frontal meningioma was identified FINDINGS: Fully formed corpus callosum. Unremarkable sella turcica, posterior pituitary bright spot, brainstem, colliculus, and posterior fossa. There is normal hurd-white differentiation without midline shift or mass effect. There is no focal acute restricted diffusion. There are normal intracranial T2 flow voids. There is minimal periventricular white matter prolonged T2 signal intensity of small vessel ischemic disease. There are no blood products. There is mild motion degradation on the axial T1 weighted sequence. There is normal flow void of the superior and inferior sagittal sinuses. The orbital cones and apices are unremarkable. Postcontrast images demonstrate homogeneous contrast enhancement of the 9 x 11 millimeter lesion left frontal inner table calvarium most compatible with a meningioma. No other abnormal contrast enhancement is identified. The infundibulum is midline. The optic chiasm is normally located. There is mild bilateral anterior ethmoid air cell mucosal thickening. The vestibular cochlear nerve sheath bundles and cerebellopontine angles are within normal limits. IMPRESSION: No acute restricted diffusion. Minimal atrophy for the patient's age. Left frontal 9 x 11 millimeter inner table calvarium meningioma without significant mass effect or edema of the underlying frontal cortex. This is likely an incidental finding. No blood products. No evidence for acute or remote infarct. Mild ethmoid sinusitis.
[2017-09-05] MEDS: cefTRIAXone 2 GM in NACL 0.9% 20 ML IV SCH (21:24)
[2017-09-05] MEDS: DESYREL PO SCH (21:24)
[2017-09-05] MEDS: KEPPRA PO SCH (21:25)
[2017-09-06] MEDS: DUONEB *Not for PRN Use IH SCH ×4 (02:33→20:32)
[2017-09-06] MEDS: NEURONTIN PO SCH ×2 (03:33→10:42)
[2017-09-06] MEDS: LOVENOX SUB-Q SCH (10:33)
[2017-09-06] MEDS: KEPPRA PO SCH ×2 (10:33→22:32)
[2017-09-06] MEDS: PEPCID PO SCH ×2 (10:33→22:32)
[2017-09-06] MEDS: ZITHROMAX PO SCH (10:33)
--- NOTE | 2017-09-06 10:37 | Progress Note ---
Assessment and Plan Assessment: 1) Sepsis: better. Etiology most likely influenza-like syndrome. CRP=4.2 2) Influenza-like syndrome / bronchitis: patient with 3 weeks of symptoms. CXR negative. No fever and leukocytosis resolved 3) History of seizures 4) History of bipolar disorder 5) HIV infection since 1995, she follows up at [facility], currently on triumeq, she stopped it 4 days ago since admission 6) Nausea, vomiting, diarrhea -resolved 7) Near syncope: CT of the head showed left frontal meningioma. Chest x-ray show no consolidations. MRI +9x11 mm meningiona Plan: -continue azithromycin and ceftriaxone day 3 of 5 -upon discharge will do levaquin 750 mg PO q day x 5 days total -continue triumeq alternative - abacavir + lamivudine + raltegravir -upon discharge pt is to re-start triumeq -if clinically better ok to d/c home and HIV clinic f/u in [address] Langford for your consultation, will follow up with you. Jackie Rangel MD Infectious Diseases Specialist [facility] M [phone] O [phone] Subjective Date of service: 09/06/17 Principal diagnosis: influenza like syndrome Interval history: Feels some better still c/o SOB and dry cough no fever. Microbiology: Influenza A&B negative Current Antimicrobials: Ceftriaxone Azithro Previous Antimicrobials: Objective - Exam Narrative Exam: General appearance: Alert in NAD, conversant Eyes: anicteric sclerae, moist conjunctivae; no lid-lag; PERRLA HENT: Atraumatic; oropharynx clear Neck: Trachea midline; supple, no thyromegaly or lymphadenopathy Lungs: scattered rhonchi CV: RRR Abdomen: Soft, non-tender; no masses or hepatosplenomegaly Extremities: No peripheral edema or extremity lymphadenopathy Skin: Normal temperature, turgor and texture; no rash, ulcers or subcutaneous nodules Psych: Appropriate affect, alert and oriented to person, place and time. Neuro: alert and oriented x 3. Moving all extermities Lines: No CVL / PICC - Constitutional Vitals: Vital Signs Temp Pulse Resp BP Pulse Ox 98.4 F 87 18 110/84 97 09/06/17 08:34 09/06/17 08:34 09/06/17 08:34 09/06/17 08:34 09/06/17 08:34 Temperature -Last 24 Hours Temperature 98.4 F Temperature 98.4 F Temperature 97.6 F Temperature 98.4 F Temperature 98.6 F Temperature 98.3 F - Labs CBC & Chem 7: 09/05/17 04:50 09/05/17 04:50 Labs: Abnormal lab results 09/05/17 Range/Units 17:00 C-Reactive Protein 4.20 H (0.00-1.30) mg/dL
--- NOTE | 2017-09-06 14:12 | Progress Note ---
Assessment and Plan Assessment and plan: Patient is a 62-year-old woman with history of bipolar disorder, HIV, seizure disorder and hypertension was found unconscious on the floor on her room in the transitional home. Stress test reported as normal Chest x-ray reveals no acute findings CT head: probable small left frontal meningoma, no acute finding ECHO: concentric LVH, EF 55-60%, trace MR, mild TR, mild pulmonary hypertension , RVSP 33 mmhg Syncope Syncope w/u ordered likely vasovagal Acute asthmatic Bronchitis IV Levaquin and duonebs. low dose Solumedrol Seizure disorder On Gabapentin Morbid obesity, BMI 40.1: lifestyle modification H/o HIV - not on any home meds Bipolar disorder - resume home meds DVT prophylaxis: on sq Lovenox New issues: "10:00 AM Received telephone call from physical therapist who report when walking with patient this am oxygen saturation dropped to 80% on room air, and heart rate increased to 145/min. Patient assisted back to room and to bed oxgen 2L via NC in use and oxygen saturation increased to 99%. Patient then placed back on room air. Patient she desat to 80% on activity." per RN. -Most likely Acute hypoxic respiratory failure due to asthmatic bronchitis, poa , see above: treat with O2 Consulted Pulmonology Consulted Infectious Disease -Brain Meningoma suspected, consulted Neurology to see if this is related to the syncope==> MRI brain w/wo contrast IMPRESSION: No acute restricted diffusion. Minimal atrophy for the patient's age. Left frontal 9 x 11 millimeter inner table calvarium meningioma without significant mass effect or edema of the underlying frontal cortex. This is likely an incidental finding. No blood products. No evidence for acute or remote infarct. Mild ethmoid sinusitis. History Interval history: Patient was seen and examined. Follow-up on current diagnosis. Overnight uneventful. Patient denies any chest pain, nausea/vomiting or severe headaches. Imaging, nursing note, chart, labs and old chart reviewed. Discussed with patient. Patient main complaint is cough which is now productive phlegm. Patient has had a nonproductive cough for last 3 weeks. Hospitalist Physical - Physical exam Narrative exam: GEN: WDWN, NAD, AWAKE, ALERT, ORIENTATED 3, BMI of 40.5 HEENT: NCAT, EOMI, PERRL, OP Clear NECK: supple, no adenopathy, no thyromegaly, no JVD CVS/HEART: RRR, NORMAL S1S2, NO JVD, pulses present bilaterally CHEST/LUNGS: expiratory wheezing, Symmetrical chest expansion, diminished air entry bilaterally GI/Abdomen: soft, NTND, good bowel sounds, no guarding or rebound /Bladder: no suprapubic tenderness, no CVA or paraspinal tenderness EXT/Skin: no c/c/e, no obvious rash MSK: FROM x 4 Neuro: CN 2-12 grossly intact, no new focal deficits Psych: calm - Constitutional Vitals: Temp Pulse Resp BP Pulse Ox 98.7 F 85 18 110/72 97 09/06/17 11:57 09/06/17 14:00 09/06/17 14:00 09/06/17 11:57 09/06/17 11:57 General appearance: Present: no acute distress, well-nourished Results - Labs CBC & Chem 7: 09/05/17 04:50 09/05/17 04:50 Labs: Laboratory Last Values WBC 7.8 K/mm3 (4.5-11.0) 09/05/17 04:50 RBC 3.45 M/mm3 (3.65-5.03) L 09/05/17 04:50 Hgb 11.7 gm/dl (10.1-14.3) 09/05/17 04:50 Hct 35.5 % (30.3-42.9) 09/05/17 04:50 MCV 103 fl (79-97) H 09/05/17 04:50 MCH 34 pg (28-32) H 09/05/17 04:50 MCHC 33 % (30-34) 09/05/17 04:50 RDW 14.9 % (13.2-15.2) 09/05/17 04:50 Plt Count 321 K/mm3 (140-440) 09/05/17 04:50 Lymph % (Auto) 24.3 % (13.4-35.0) 09/05/17 04:50 [place] % (Auto) 7.2 % (0.0-7.3) 09/05/17 04:50 Eos % (Auto) 0.1 % (0.0-4.3) 09/05/17 04:50 Baso % (Auto) 0.5 % (0.0-1.8) 09/05/17 04:50 Lymph # 1.9 K/mm3 (1.2-5.4) 09/05/17 04:50 [place] # 0.6 K/mm3 (0.0-0.8) 09/05/17 04:50 Eos # 0.0 K/mm3 (0.0-0.4) 09/05/17 04:50 Baso # 0.0 K/mm3 (0.0-0.1) 09/05/17 04:50 Seg Neutrophils % 67.9 % (40.0-70.0) 09/05/17 04:50 Seg Neutrophils # 5.3 K/mm3 (1.8-7.7) 09/05/17 04:50 D-Dimer 186.39 ng/mlDDU (0-234) 09/03/17 16:00 Sodium 142 mmol/L (137-145) 09/05/17 04:50 Potassium 4.2 mmol/L (3.6-5.0) 09/05/17 04:50 Chloride 101.5 mmol/L (98-107) 09/05/17 04:50 Carbon Dioxide 26 mmol/L (22-30) 09/05/17 04:50 Anion Gap 19 mmol/L 09/05/17 04:50 BUN 17 mg/dL (7-17) 09/05/17 04:50 Creatinine 1.0 mg/dL (0.7-1.2) 09/05/17 04:50 Estimated GFR > 60 ml/min 09/05/17 04:50 BUN/Creatinine Ratio 17 % 09/05/17 04:50 Glucose 94 mg/dL (65-100) 09/05/17 04:50 Calcium 9.0 mg/dL (8.4-10.2) 09/05/17 04:50 Total Bilirubin < 0.20 mg/dL (0.1-1.2) 09/05/17 04:50 AST 13 units/L (5-40) 09/05/17 04:50 ALT 7 units/L (7-56) 09/05/17 04:50 Alkaline Phosphatase 89 units/L (35-129) 09/05/17 04:50 Troponin T < 0.010 ng/mL (0.00-0.029) 09/04/17 12:17 C-Reactive Protein 4.20 mg/dL (0.00-1.30) H 09/05/17 17:00 NT-Pro-B Natriuret Pep 75.41 pg/mL (0-900) 09/03/17 16:00 Total Protein 7.6 g/dL (6.3-8.2) 09/05/17 04:50 Albumin 4.0 g/dL (3.9-5) 09/05/17 04:50 Albumin/Globulin Ratio 1.1 % 09/05/17 04:50
--- NOTE | 2017-09-06 14:18 | Discharge Summary ---
Providers - Providers Date of Admission: 09/03/17 18:45 Date of discharge: 09/07/17 Attending physician: EDISON MCKEON 09/05/17 00:40 Physical Therapy Evaluation and Treat [CONS] Routine Comment: Reason For Exam: d/c clearance 09/05/17 09:07 Consult to Physician [CONS] Routine Consulting Provider: SHANTE IRAHETA Reason For Exam: Is the syncope related to brain tumor? Place consult to:: NEURO Notified:: Y Comment:: ADDED TO LIST 09/05/17 12:30 Consult to Physician [CONS] Routine Consulting Provider: HUMBERTO ESCOBEDO Reason For Exam: HIV Place consult to:: id Notified:: Dr Kraus Was contact made?: Yes Time called:: 13:02 09/05/17 12:31 Consult to Physician [CONS] Routine Consulting Provider: CHARLY CEDEÑO Reason For Exam: respiratory failure Place consult to:: pulmon Notified:: office Phone number called:: [phone] Was contact made?: Yes If yes, spoke with:: lion Time called:: 13:06 Primary care physician: LORENZO CHAPPELL Hospitalization Condition: Stable Hospital course: Patient is a 62-year-old woman with history of bipolar disorder, HIV, seizure disorder and hypertension was found unconscious on the floor on her room in the transitional home. Stress test reported as normal Chest x-ray reveals no acute findings CT head: probable small left frontal meningoma, no acute finding ECHO: concentric LVH, EF 55-60%, trace MR, mild TR, mild pulmonary hypertension , RVSP 33 mmhg Syncope Syncope w/u ordered likely vasovagal Acute asthmatic Bronchitis IV Levaquin and duonebs. low dose Solumedrol Seizure disorder On Gabapentin Morbid obesity, BMI 40.1: lifestyle modification H/o HIV - not on any home meds Bipolar disorder - resume home meds DVT prophylaxis: on sq Lovenox New issues: "10:00 AM Received telephone call from physical therapist who report when walking with patient this am oxygen saturation dropped to 80% on room air, and heart rate increased to 145/min. Patient assisted back to room and to bed oxgen 2L via NC in use and oxygen saturation increased to 99%. Patient then placed back on room air. Patient she desat to 80% on activity." per RN. -Most likely Acute hypoxic respiratory failure due to asthmatic bronchitis, poa , see above: treat with O2 Consulted Pulmonology Consulted Infectious Disease -Brain Meningoma suspected, consulted Neurology to see if this is related to the syncope==> MRI brain w/wo contrast IMPRESSION: No acute restricted diffusion. Minimal atrophy for the patient's age. Left frontal 9 x 11 millimeter inner table calvarium meningioma without significant mass effect or edema of the underlying frontal cortex. This is likely an incidental finding. No blood products. No evidence for acute or remote infarct. Mild ethmoid sinusitis. oxygen was weaned off yesterday. Disposition: DC-01 TO HOME OR SELFCARE Time spent for discharge: 32 minutes Core Measure Documentation - Palliative Care Palliative Care/ Comfort Measures: Not Applicable - Core Measures Any of the following diagnoses?: none - VTE Discharge Requirements Deep Vein Thrombosis/Pulmonary Embolism Present on Admission: No Has pt received <5 days of overlap therapy or INR<2.0: No Anticoagulant overlap therapy prescribed at discharge: No Contraindication No Overlap Therapy order at DC: Not Indicated Exam - Physical Exam Narrative exam: GEN: WDWN, NAD, AWAKE, ALERT, ORIENTATED 3, BMI of 40.5 HEENT: NCAT, EOMI, PERRL, OP Clear NECK: supple, no adenopathy, no thyromegaly, no JVD CVS/HEART: RRR, NORMAL S1S2, NO JVD, pulses present bilaterally CHEST/LUNGS: expiratory wheezing, Symmetrical chest expansion, diminished air entry bilaterally GI/Abdomen: soft, NTND, good bowel sounds, no guarding or rebound /Bladder: no suprapubic tenderness, no CVA or paraspinal tenderness EXT/Skin: no c/c/e, no obvious rash MSK: FROM x 4 Neuro: CN 2-12 grossly intact, no new focal deficits Psych: calm - Constitutional Vitals: Temp Pulse Resp BP Pulse Ox 98.7 F 85 18 110/72 97 09/06/17 11:57 09/06/17 14:00 09/06/17 14:00 09/06/17 11:57 09/06/17 11:57 Plan Activity: other (no strenous activity until cleared by pcp) Diet: regular Additional Instructions: Follow up with HIV clinic at [facility] Follow up with: LORENZO CHAPPELL MD [Primary Care Provider] - 7 Days HUMBERTO ESCOBEDO MD [Staff Physician] - 7 Days CHARLY CEDEÑO MD [Staff Physician] - 7 Days Prescriptions: Ipratropium/Albuterol Sulfate [DUONEB *Not for PRN Use*] 1 ampul IH Q6HRT PRN # 30 day PRN Reason: Shortness Of Breath levETIRAcetam [Keppra TAB] 500 mg PO BID #60 tablet Levofloxacin [Levaquin] 750 mg PO QDAY #5 day oxyCODONE /ACETAMINOPHEN [Percocet 5/325 mg] 1 tab PO Q6H PRN #20 tablet PRN Reason: Pain , Severe (7-10)
--- NOTE | 2017-09-06 16:46 | Progress Note ---
Assessment and Plan 62 year old female with diagnoses of seizure disorder, hypertension, sciatic pain, HIV, bipolar disorder, probable bronchitis on antibiotics. CT scan suggestive of left frontal meningioma. Her event on 09/03/2017 may have been a seizure as the patient does not remember receiving her Keppra lately. A febrile illness can lower seizure threshold as well. MRI scan of the brain reveals the 9 mm meningioma, left frontal. Small vessel disease, no other lesions. She has been seen by infectious disease and antiretroviral meds reviewed. Plan - She should be fine for discharge tomorrow Subjective Date of service: 09/06/17 Principal diagnosis: influenza like syndrome Interval history: Feeling better but still admits cough. No headache or seizures. Objective - Vital Sign Vital Signs - 12hr 09/06/17 09/06/17 09/06/17 05:09 08:00 08:16 Temperature 98.4 F Pulse Rate 84 Pulse Rate [ 84 84 Posterior Bilateral Throughout] Respiratory 18 Rate Respiratory 17 17 Rate [Posterior Bilateral Throughout] Blood Pressure 109/67 Blood Pressure [Left] O2 Sat by Pulse 92 Oximetry 09/06/17 09/06/17 09/06/17 08:34 11:57 14:00 Temperature 98.4 F 98.7 F Pulse Rate 87 92 H Pulse Rate [ 85 Posterior Bilateral Throughout] Respiratory 18 18 Rate Respiratory 18 Rate [Posterior Bilateral Throughout] Blood Pressure Blood Pressure 110/84 110/72 [Left] O2 Sat by Pulse 97 97 Oximetry 09/06/17 16:09 Temperature 98.6 F Pulse Rate 86 Pulse Rate [ Posterior Bilateral Throughout] Respiratory 18 Rate Respiratory Rate [Posterior Bilateral Throughout] Blood Pressure Blood Pressure 114/86 [Left] O2 Sat by Pulse 94 Oximetry - General Apperance Constitutional: comfortable - EENT EENT: PERRL, mucous membranes moist, hearing intact, vision intact - Respiratory Respiratory: lungs clear, normal breath sounds - Cardiovascular Cardiovascular: regular rate, normal S1, normal S2 Extremities: no peripheral edema bilat, no clubbing, cyanosis - Gastrointestinal Gastrointestinal: soft, non-tender - Integumentary Integumentary: normal - Neurologic Cranial nerve examination: PERRL, EOMI, V1/V2/V3 grossly intact, face symmetric , intact shoulder shrug Speech examination: intact Detailed motor examination: grossly full strength in, full strength in all mabel - Musculoskeletal Musculoskeletal: no pain - Psychiatric Psychiatric: mood/affect appropriate - Laboratory Findings CBC and BMP: 09/05/17 04:50 09/05/17 04:50 Abnormal Lab Findings: Abnormal Labs 09/03/17 09/03/17 09/05/17 13:44 13:44 04:50 WBC 15.0 H RBC 3.47 L 3.45 L MCV 102 H 103 H MCH 33 H 34 H Lymph % (Auto) 10.7 L Seg Neutrophils % 84.4 H Seg Neutrophils # 12.7 H Sodium 136 L Chloride 96.0 L C-Reactive Protein 09/05/17 17:00 WBC RBC MCV MCH Lymph % (Auto) Seg Neutrophils % Seg Neutrophils # Sodium Chloride C-Reactive Protein 4.20 H
[2017-09-06] MEDS: ISENTRESS PO SCH (22:30)
[2017-09-06] MEDS: EPIVIR PO SCH (22:30)
[2017-09-06] MEDS: cefTRIAXone 2 GM in NACL 0.9% 20 ML IV SCH (22:31)
[2017-09-06] MEDS: ZIAGEN PO SCH (22:31)
[2017-09-06] MEDS: DESYREL PO SCH (22:32)
[2017-09-07] MEDS: DUONEB *Not for PRN Use IH SCH ×2 (01:30→08:59)
[2017-09-07] MEDS: KEPPRA PO SCH (09:41)
[2017-09-07] MEDS: EPIVIR PO SCH (09:41)
[2017-09-07] MEDS: ZITHROMAX PO SCH (09:42)
[2017-09-07] MEDS: PEPCID PO SCH (09:42)
[2017-09-07] MEDS: LOVENOX SUB-Q SCH (09:43)
[2017-09-07] MEDS: ZIAGEN PO SCH (09:43)
[2017-09-07] MEDS: ISENTRESS PO SCH (09:44)
[2017-09-07] MEDS: NEURONTIN PO SCH (09:45)
[2017-09-07 10:18] VITALS: BP 122/78
--- NOTE | 2017-09-07 11:54 | Progress Note ---
Assessment and Plan Assessment: 1) Sepsis: better. Etiology most likely influenza-like syndrome. CRP=4.2 2) Influenza-like syndrome / bronchitis: patient with 3 weeks of symptoms. CXR negative. No fever and leukocytosis resolved 3) History of seizures 4) History of bipolar disorder 5) HIV infection since 1995, she follows up at [facility], currently on triumeq, she stopped it 4 days ago since admission 6) Nausea, vomiting, diarrhea -resolved 7) Near syncope: CT of the head showed left frontal meningioma. Chest x-ray show no consolidations. MRI +9x11 mm meningiona Plan: -continue azithromycin and ceftriaxone day 4 of 5 -upon discharge will do levaquin 750 mg PO q day x 5 days total -continue triumeq alternative - abacavir + lamivudine + raltegravir -upon discharge pt is to re-start triumeq -if clinically better ok to d/c home and HIV clinic f/u in 1 week We will sign off Thank you Dr Langford for your consultation, will follow up with you. Charlotte Garrison NP-C for Dr. Jackie Rangel MD Infectious Diseases Specialist [facility] M [phone] O [phone] Subjective Date of service: 09/07/17 Principal diagnosis: influenza like syndrome Interval history: I feel so much better today and I want to go home Microbiology: Influenza A&B negative Current Antimicrobials: Ceftriaxone Azithro Previous Antimicrobials: Objective - Exam Narrative Exam: General appearance: Alert in NAD, conversant Eyes: anicteric sclerae, moist conjunctivae; no lid-lag; PERRLA HENT: Atraumatic; oropharynx clear Neck: Trachea midline; supple, no thyromegaly or lymphadenopathy Lungs: diminished bilaterally with scattered rhonchi CV: RRR Abdomen: Soft, non-tender; +BS x 4 Extremities: No peripheral edema or extremity lymphadenopathy Skin: Normal temperature, turgor and texture; no rash, ulcers or subcutaneous nodules Psych: Appropriate affect, calm and cooperative Neuro: alert and oriented x 3. Moving all extermities Lines: No CVL / PICC - Constitutional Vitals: Vital Signs Temp Pulse Resp BP Pulse Ox 98.7 F 91 H 18 122/78 96 09/07/17 10:17 01/18/18 10:17 09/07/17 10:17 09/07/17 10:17 09/07/17 10:17 Temperature -Last 24 Hours Temperature 98.7 F Temperature 97.7 F Temperature 98.6 F Temperature 98.6 F Temperature 98.6 F Temperature 98.7 F - Labs CBC & Chem 7: 09/05/17 04:50 09/05/17 04:50
== END 2017-09-07 11:24 | disposition home or self-care (01) | DRG 974 ==
LOC: ED 11:43 → 4A 18:45
PROVIDERS: ADMIT Internal Medicine; ATTEND Internal Medicine
PROC: 3E0234Z Introduction of Serum, Toxoid and Vaccine into Muscle, Percutaneous Approach (ICD-10-PCS; principal; 2017-09-05)
DX: A41.9 Sepsis, unspecified organism (principal); B20 Human immunodeficiency virus [HIV] disease; J96.01 Acute respiratory failure with hypoxia; F31.9 Bipolar disorder, unspecified; Z82.49 Family history of ischemic heart disease and other diseases of the circulatory system; G40.909 Epilepsy, unspecified, not intractable, without status epilepticus; J40 Bronchitis, not specified as acute or chronic; J45.909 Unspecified asthma, uncomplicated; Z23 Encounter for immunization
CPT/HCPCS: 36415; 70450; 70553; 71046; 78452; 80048; 80053; 83880; 84484; 85025; 85379; 86140; 87400; 90732; 93005; 93010; 93017; 93306; 93880; 94640; 96365; 96375; 99285; A9502; A9577; G8978-GP; G8979-GP; G8980-GP; J0456; J0696; J1650; J2060; J2785; J2930; J7050

== ENCOUNTER 2017-11-30 19:01 | Emergency (ER) | payer MEDICAID ==
[2017-11-30] MEDS ORDERED: ASPIRIN PO ONE (19:38)
[2017-11-30 20:14] LABS: Hematocrit 37.1 % (30.3-42.9); Hemoglobin 12.6 gm/dl (10.1-14.3); Mean Corpuscular HGB Conc 34 % (30-34); Mean Corpuscular Hemoglobin 35 pg (28-32); Mean Corpuscular Volume 103 fl (79-97); Platelet Count 333 K/mm3 (140-440); Red Blood Count 3.61 M/mm3 (3.65-5.03); Red Cell Distribution Width 13.8 % (13.2-15.2)
[2017-11-30 20:19] LABS: BUN/Creatinine Ratio 14; Blood Urea Nitrogen 15 mg/dL (7-17); Calcium 9.2 mg/dL (8.4-10.2); Hemolysis Index 6
[2017-11-30 21:04] LABS: Basophils % (Manual) 0 % (0.0-1.8); Eosinophils % (Manual) 0 % (0.0-4.3); Myelocytes # (Manual) 0.1 K/mm3; Total Cells Counted 100
[2017-11-30 21:05] LABS: Anisocytosis Few
--- NOTE | 2017-11-30 23:47 | Emergency Department Report ---
ED General Adult HPI - General Chief complaint: Chest Pain Stated complaint: CHEST PAIN Time Seen by Provider: 11/30/17 23:08 Source: patient, EMS Mode of arrival: Stretcher Limitations: No Limitations - History of Present Illness Initial comments: 62-year-old female history of bipolar and HIV status for counts.ok, here for eval of cp poor historian in terms of atypical somewhat reproducible to left chest wall intermittent into the epigastrium no shortness of breath or swelling no tearing pain into the back no nausea vomiting or diarrhea does history of gerd may be sore like that according to the patient not sure if it's exertional dosioccur at rest -: Gradual, days(s) Location: chest Radiation: non-radiation, abdomen Severity scale (0 -10): 1 Quality: burning, aching Consistency: intermittent, now resolved Worsens with: eating Associated Symptoms: denies other symptoms. denies: confusion, cough, diaphoresis, fever/chills, headaches, loss of appetite, malaise, nausea/vomiting , rash, seizure, shortness of breath, syncope, weakness - Related Data Home Medications Medication Instructions Recorded Confirmed Last Taken Gabapentin [Neurontin] 300 mg PO Q8HR 09/03/17 09/03/17 Unknown Ranitidine HCl [Heartburn Relief] 150 mg PO BID 09/03/17 09/03/17 Unknown Previous Rx's Medication Instructions Recorded Last Taken Type Abacavir [Ziagen TAB] 300 mg PO BID #60 tablet 09/06/17 Unknown Rx Acetaminophen [Acetaminophen TAB] 325 mg PO Q4H PRN #30 tablet 09/06/17 Unknown Rx Ipratropium/Albuterol Sulfate 1 ampul IH Q6HRT PRN #30 day 09/06/17 Unknown Rx [DUONEB *Not for PRN Use*] Levofloxacin [Levaquin] 750 mg PO QDAY #5 day 09/06/17 Unknown Rx Quetiapine Fumarate [Seroquel Xr] 600 mg PO QHS #30 day 09/06/17 Unknown Rx Trazodone HCl [traZODone] 300 mg PO QHS #30 day 09/06/17 Unknown Rx lamiVUDine [Epivir] 150 mg PO BID #60 tablet 09/06/17 Unknown Rx levETIRAcetam [Keppra TAB] 500 mg PO BID #60 tablet 09/06/17 Unknown Rx oxyCODONE /ACETAMINOPHEN [Percocet 1 tab PO Q6H PRN #20 tablet 09/06/17 Unknown Rx 5/325 mg] Allergies Allergy/AdvReac Type Severity Reaction Status Date / Time No Known Allergies Allergy Unverified 11/30/17 19:37 ED Review of Systems ROS: Stated complaint: CHEST PAIN Other details as noted in HPI Comment: All other systems reviewed and negative Constitutional: denies: diaphoresis, fever, malaise, weakness ENT: denies: dental pain, hearing loss, epistaxis Respiratory: denies: cough, orthopnea, shortness of breath, SOB with exertion, SOB at rest, stridor Cardiovascular: chest pain. denies: palpitations, dyspnea on exertion, orthopnea, edema, syncope, paroxysmal nocturnal dyspnea, other Gastrointestinal: other (chronic epigastric symptoms w gerd). denies: diarrhea , constipation, hematemesis, melena, hematochezia Genitourinary: denies: frequency, hematuria, discharge Skin: denies: change in color, change in hair/nails, pruritus Neurological: denies: numbness, paresthesias, confusion Psychiatric: denies: auditory hallucinations, visual hallucinations, homicidal thoughts, suicidal thoughts ED Past Medical Hx - Past Medical History Hx Renal Disease: Yes Hx Seizures: Yes Hx Psychiatric Treatment: Yes (bipolar) Hx HIV: Yes Additional medical history: hiv - Surgical History Additional Surgical History: hernia, - Social History Smoking Status: Never Smoker - Medications Home Medications: Home Medications Medication Instructions Recorded Confirmed Last Taken Type Gabapentin [Neurontin] 300 mg PO Q8HR 09/03/17 09/03/17 Unknown History Ranitidine HCl [Heartburn Relief] 150 mg PO BID 09/03/17 09/03/17 Unknown History Abacavir [Ziagen TAB] 300 mg PO BID #60 tablet 09/06/17 Unknown Rx Acetaminophen [Acetaminophen TAB] 325 mg PO Q4H PRN #30 tablet 09/06/17 Unknown Rx Ipratropium/Albuterol Sulfate 1 ampul IH Q6HRT PRN #30 day 09/06/17 Unknown Rx [DUONEB *Not for PRN Use*] Levofloxacin [Levaquin] 750 mg PO QDAY #5 day 09/06/17 Unknown Rx Quetiapine Fumarate [Seroquel Xr] 600 mg PO QHS #30 day 18 09/03/17 Unknown Rx Trazodone HCl [traZODone] 300 mg PO QHS #30 day 18 09/03/17 Unknown Rx lamiVUDine [Epivir] 150 mg PO BID #60 tablet 09/06/17 Unknown Rx levETIRAcetam [Keppra TAB] 500 mg PO BID #60 tablet 09/06/17 Unknown Rx oxyCODONE /ACETAMINOPHEN [Percocet 1 tab PO Q6H PRN #20 tablet 09/06/17 Unknown Rx 5/325 mg] ED Physical Exam - General Limitations: No Limitations General appearance: alert, in no apparent distress, anxious - Head Head exam: Present: atraumatic, normocephalic - Eye Eye exam: Present: normal appearance, PERRL, EOMI - ENT ENT exam: Present: normal exam, normal orophraynx - Neck Neck exam: Present: normal inspection. Absent: tenderness, meningismus - Respiratory Respiratory exam: Present: normal lung sounds bilaterally, chest wall tenderness. Absent: respiratory distress, wheezes, rales, rhonchi, stridor, accessory muscle use, decreased breath sounds, prolonged expiratory - Cardiovascular Cardiovascular Exam: Present: regular rate, normal rhythm, normal heart sounds. Absent: rubs, gallop - GI/Abdominal GI/Abdominal exam: Present: soft. Absent: distended, tenderness, guarding, rebound, rigid, mass, bruit, pulsatile mass - Extremities Exam Extremities exam: Present: normal inspection, normal capillary refill. Absent: pedal edema, joint swelling, calf tenderness - Back Exam Back exam: Absent: CVA tenderness (L), muscle spasm, paraspinal tenderness, vertebral tenderness - Neurological Exam Neurological exam: Present: alert, oriented X3, CN II-XII intact. Absent: motor sensory deficit - Psychiatric Psychiatric exam: Present: normal affect, anxious ED Course Vital Signs 11/30/17 11/30/17 11/30/17 19:24 19:33 21:27 Temperature 98.1 F Pulse Rate 90 88 Respiratory 16 16 16 Rate Blood Pressure 136/95 138/82 [Left] O2 Sat by Pulse 99 100 Oximetry 12/01/17 02:42 Temperature Pulse Rate 81 Respiratory 14 Rate Blood Pressure 129/84 [Left] O2 Sat by Pulse 98 Oximetry ED Medical Decision Making - Lab Data Result diagrams: 11/30/17 19:52 11/30/17 19:52 - EKG Data -: EKG Interpreted by Me Rate: normal (no acute ischemic change) - Radiology Data Radiology results: report reviewed - Medical Decision Making Symptoms are atypical chest x-ray is negative EKG is unremarkable troponin is negative 3 with 2 days of chest pain. History and physical are unrevealing for acute emergent cardiac pulm process at this time she has a history of GERD this does seem to represent atypical chest pain with possible GI component and she has no evidence of DVT or PE at this time she has no tachycardia nl saturations were normal she had no calf pain or swelling she is not felt to be having any other emergent process at this time that would require further testing or admission at this time she is her first toe for outpatient follow-up , heart is 0,0.1,1,0=2, =low risk cp Critical care attestation.: If time is entered above; I have spent that time in minutes in the direct care of this critically ill patient, excluding procedure time. ED Disposition Clinical Impression: Atypical chest pain Disposition: DC-01 TO HOME OR SELFCARE Is pt being admited?: No Condition: Stable Instructions: Chest Pain (ED) Additional Instructions: PRILOSEC NEEDED DIRECTED, SEE HER DOCTOR IN 2 DAYS, OR THE DOCTOR LISTED, RETURN IF NEW ALARMING SYMPTOMS Referrals: PRIMARY CARE, [Primary Care Provider] - 3-5 Days Time of Disposition: :
--- NOTE | 2017-12-01 00:12 | XRay Report ---
FINAL REPORT PROCEDURE: XR CHEST 1V AP TECHNIQUE: Chest radiograph anteroposterior view. CPT 75198 HISTORY: cp COMPARISON: No prior studies are available for comparison. FINDINGS: Heart: Normal. Mediastinum/Vessels: Normal. Lungs/Pleural space: Normal. Bony thorax: No acute osseous abnormality. Life support devices: None. IMPRESSION: No acute cardiopulmonary abnormality.
[2017-12-01 02:43] VITALS: BP 129/84
[2017-12-01] MEDS ORDERED: ALUM-MAG HYDROX-SIMETH 200-200-20MG/5ML PO ONE (04:23)
== END 2017-12-01 05:14 | disposition home or self-care (01) ==
LOC: ED 19:01
DX: R07.89 Other chest pain (principal); F31.9 Bipolar disorder, unspecified
CPT/HCPCS: 36415; 71045; 80048; 84484; 85007; 85025; 93005; 93010

== ENCOUNTER 2019-06-19 21:22 | Emergency (ER) | payer MEDICAID ==
[2019-06-19] MEDS ORDERED: ASPIRIN 81 MG TAB CHEW PO ONE (22:11)
--- NOTE | 2019-06-19 22:11 | Event Note ---
ED Screening Note Date of service: 06/19/19 Time: 22:13 ED Screening Note: Pt complains of right arm and chest pain x 2-3 weeks. Denies abdominal pain pain worsens with laying on right side denies injury states intermittent SOB Hx of HIV This initial assessment/diagnostic orders/clinical plan/treatment(s) is/are subject to change based on patients health status, clinical progression and re- assessment by fellow clinical providers in the ED. Further treatment and workup at subsequent clinical providers discretion. Patient/guardian urged not to elope from the ED as their condition may be serious if not clinically assessed and managed. Initial orders include: labs CXR meds
--- NOTE | 2019-06-19 22:56 | XRay Report ---
CHEST 2 VIEWS 2243 INDICATION / CLINICAL INFORMATION: Chest Pain COMPARISON: 11/30/2017 FINDINGS: SUPPORT DEVICES: None. HEART / MEDIASTINUM: No significant abnormality. LUNGS / PLEURA: No significant pulmonary or pleural abnormality. No pneumothorax. ADDITIONAL FINDINGS: No significant additional findings. IMPRESSION: No significant acute abnormality Signer Name: Rivera Redmond MD Signed: 06/19/2019 10:52 PM Workstation Name: [id number]
[2019-06-19 23:07] LABS: Basophils # (Auto) 0.1 K/mm3 (0.0-0.1); Basophils % (Auto) 1.6 % (0.0-1.8); Eosinophils # (Auto) 0.1 K/mm3 (0.0-0.4); Eosinophils % (Auto) 1.6 % (0.0-4.3); Hematocrit 34.1 % (30.3-42.9); Hemoglobin 11.5 gm/dl (10.1-14.3); Lymphocytes # (Auto) 1.9 K/mm3 (1.2-5.4); Lymphocytes % (Auto) 48.9 % (13.4-35.0); Mean Corpuscular HGB Conc 34 % (30-34); Mean Corpuscular Volume 99 fl (79-97); Monocytes # (Auto) 0.4 K/mm3 (0.0-0.8); Monocytes % (Auto) 9.2 % (0.0-7.3); Platelet Count 316 K/mm3 (140-440); Red Blood Count 3.44 M/mm3 (3.65-5.03)
[2019-06-19 23:20] LABS: BUN/Creatinine Ratio 16; Blood Urea Nitrogen 13 mg/dL (7-17); Calcium 9.6 mg/dL (8.4-10.2); Hemolysis Index 10
--- NOTE | 2019-06-20 00:45 | Emergency Department Report ---
ED General Adult HPI - General Chief complaint: Abdominal Pain Stated complaint: RIGHT SIDE PAIN Time Seen by Provider: 06/19/19 22:10 Source: patient Mode of arrival: Ambulatory Limitations: No Limitations - History of Present Illness Initial comments: The patient presents to the emergency department with a chief complaint of right warmer right-sided pain that started week ago. Patient states that when she moves her right warmer hurts worse. Patient denies any injury or trauma. Patient denies chest pain, shortness breath, abdominal pain, facial droop, numbness, weakness, tingling, or difficulty speaking. -: Gradual, week(s) (1) Location: upper extremity Radiation: non-radiation Severity scale (0 -10): 4 Quality: aching Consistency: constant Improves with: rest Worsens with: movement Associated Symptoms: denies other symptoms Treatments Prior to Arrival: none - Related Data Home Medications Medication Instructions Recorded Confirmed Last Taken Gabapentin 300 mg PO Q8HR 09/03/17 09/03/17 Unknown Ranitidine HCl [Heartburn Relief] 150 mg PO BID 09/03/17 09/03/17 Unknown Previous Rx's Medication Instructions Recorded Last Taken Type Abacavir [Ziagen TAB] 300 mg PO BID #60 tablet 09/06/17 Unknown Rx Acetaminophen [Acetaminophen TAB] 325 mg PO Q4H PRN #30 tablet 09/06/17 Unknown Rx Ipratropium/Albuterol Sulfate 1 ampul IH Q6HRT PRN #30 day 09/06/17 Unknown Rx [DUONEB *Not for PRN Use*] Quetiapine Fumarate [SEROquel Xr] 600 mg PO QHS #30 day 09/06/17 Unknown Rx Trazodone HCl [traZODone] 300 mg PO QHS #30 day 09/06/17 Unknown Rx lamiVUDine [Epivir] 150 mg PO BID #60 tablet 09/06/17 Unknown Rx levETIRAcetam [Keppra TAB] 500 mg PO BID #60 tablet 09/06/17 Unknown Rx levoFLOXacin [Levaquin] 750 mg PO QDAY #5 day 09/06/17 Unknown Rx oxyCODONE /ACETAMINOPHEN [Percocet 1 tab PO Q6H PRN #20 tablet 09/06/17 Unknown Rx 5/325 mg] Ranitidine HCl [Acid Control] 150 mg PO BID #60 tablet 02/08/18 Unknown Rx Acetaminophen/Codeine [Tylenol 1 tab PO Q6H PRN #15 tab 06/20/19 Unknown Rx /Codeine # 3 tab] Allergies Allergy/AdvReac Type Severity Reaction Status Date / Time No Known Allergies Allergy Verified 02/08/18 08:16 ED Review of Systems ROS: Stated complaint: RIGHT SIDE PAIN Other details as noted in HPI Constitutional: denies: chills, fever Eyes: denies: eye pain, eye discharge, vision change ENT: denies: ear pain, throat pain Respiratory: denies: cough, shortness of breath, wheezing Cardiovascular: denies: chest pain, palpitations Endocrine: no symptoms reported Gastrointestinal: denies: abdominal pain, nausea, diarrhea Genitourinary: denies: urgency, dysuria, discharge Musculoskeletal: denies: back pain, joint swelling, arthralgia Skin: denies: rash, lesions Neurological: denies: headache, weakness, paresthesias Psychiatric: denies: anxiety, depression Hematological/Lymphatic: denies: easy bleeding, easy bruising ED Past Medical Hx - Past Medical History Previous Medical History?: Yes Hx GERD: Yes Hx Renal Disease: Yes Hx Seizures: Yes Hx Psychiatric Treatment: Yes (bipolar) Hx HIV: Yes Additional medical history: hiv - Surgical History Past Surgical History?: Yes Additional Surgical History: hernia, - Social History Smoking Status: Never Smoker Substance Use Type: None - Medications Home Medications: Home Medications Medication Instructions Recorded Confirmed Last Taken Type Gabapentin 300 mg PO Q8HR 09/03/17 09/03/17 Unknown History Ranitidine HCl [Heartburn Relief] 150 mg PO BID 09/03/17 09/03/17 Unknown History Abacavir [Ziagen TAB] 300 mg PO BID #60 tablet 09/06/17 Unknown Rx Acetaminophen [Acetaminophen TAB] 325 mg PO Q4H PRN #30 tablet 09/06/17 Unknown Rx Ipratropium/Albuterol Sulfate 1 ampul IH Q6HRT PRN #30 day 09/06/17 Unknown Rx [DUONEB *Not for PRN Use*] Quetiapine Fumarate [SEROquel Xr] 600 mg PO QHS #30 day 09/06/17 09/03/17 Unknown Rx Trazodone HCl [traZODone] 300 mg PO QHS #30 day 09/06/17 09/03/17 Unknown Rx lamiVUDine [Epivir] 150 mg PO BID #60 tablet 09/06/17 Unknown Rx levETIRAcetam [Keppra TAB] 500 mg PO BID #60 tablet 09/06/17 Unknown Rx levoFLOXacin [Levaquin] 750 mg PO QDAY #5 day 09/06/17 Unknown Rx oxyCODONE /ACETAMINOPHEN [Percocet 1 tab PO Q6H PRN #20 tablet 09/06/17 Unknown Rx 5/325 mg] Ranitidine HCl [Acid Control] 150 mg PO BID #60 tablet 02/08/18 Unknown Rx Acetaminophen/Codeine [Tylenol 1 tab PO Q6H PRN #15 tab 06/20/19 Unknown Rx /Codeine # 3 tab] ED Physical Exam - General Limitations: No Limitations General appearance: alert, in no apparent distress - Head Head exam: Present: atraumatic, normocephalic - Eye Eye exam: Present: normal appearance, PERRL, EOMI - ENT ENT exam: Present: mucous membranes moist - Neck Neck exam: Present: normal inspection - Respiratory Respiratory exam: Present: normal lung sounds bilaterally. Absent: respiratory distress - Cardiovascular Cardiovascular Exam: Present: regular rate, normal rhythm. Absent: systolic murmur, diastolic murmur, rubs, gallop - GI/Abdominal GI/Abdominal exam: Present: soft, normal bowel sounds. Absent: distended, tenderness - Extremities Exam Extremities exam: Present: other (the patient has tenderness to palpation over right deltoid and the right Bicipital groove) - Back Exam Back exam: Present: normal inspection - Neurological Exam Neurological exam: Present: alert, oriented X3, CN II-XII intact. Absent: motor sensory deficit - Psychiatric Psychiatric exam: Present: normal affect, normal mood - Skin Skin exam: Present: warm, dry, intact, normal color. Absent: rash ED Course Vital Signs 06/19/19 06/19/19 06/19/19 21:31 22:49 23:00 Temperature 99.1 F Pulse Rate 96 H 90 86 Respiratory 12 20 12 Rate Blood Pressure 147/107 130/80 O2 Sat by Pulse 100 99 98 Oximetry 06/19/19 06/20/19 06/20/19 23:30 00:00 00:08 Temperature Pulse Rate 81 85 Respiratory 18 15 18 Rate Blood Pressure 127/90 121/74 O2 Sat by Pulse 97 95 Oximetry ED Medical Decision Making - Lab Data Result diagrams: 06/19/19 22:49 06/19/19 22:49 Lab Results 06/19/19 06/19/19 Range/Units 22:49 22:49 WBC 3.8 L (4.5-11.0) K/mm3 RBC 3.44 L (3.65-5.03) M/mm3 Hgb 11.5 (10.1-14.3) gm/dl Hct 34.1 (30.3-42.9) % MCV 99 H (79-97) fl MCH 34 H (28-32) pg MCHC 34 (30-34) % RDW 14.0 (13.2-15.2) % Plt Count 316 (140-440) K/mm3 Lymph % (Auto) 48.9 H (13.4-35.0) % Nelson % (Auto) 9.2 H (0.0-7.3) % Eos % (Auto) 1.6 (0.0-4.3) % Baso % (Auto) 1.6 (0.0-1.8) % Lymph # 1.9 (1.2-5.4) K/mm3 Nelson # 0.4 (0.0-0.8) K/mm3 Eos # 0.1 (0.0-0.4) K/mm3 Baso # 0.1 (0.0-0.1) K/mm3 Seg Neutrophils % 38.7 L (40.0-70.0) % Seg Neutrophils # 1.5 L (1.8-7.7) K/mm3 Sodium 138 (137-145) mmol/L Potassium 4.0 (3.6-5.0) mmol/L Chloride 102.3 (98-107) mmol/L Carbon Dioxide 24 (22-30) mmol/L Anion Gap 16 mmol/L BUN 13 (7-17) mg/dL Creatinine 0.8 (0.7-1.2) mg/dL Estimated GFR > 60 ml/min BUN/Creatinine Ratio 16 % Glucose 93 (65-100) mg/dL Calcium 9.6 (8.4-10.2) mg/dL Troponin T < 0.010 (0.00-0.029) ng/mL - Radiology Data Radiology results: report reviewed - Medical Decision Making Discussed results with patient Critical care attestation.: If time is entered above; I have spent that time in minutes in the direct care of this critically ill patient, excluding procedure time. ED Disposition Clinical Impression: Musculoskeletal arm pain Disposition: TO HOME OR SELFCARE Is pt being admited?: No Does the pt Need Aspirin: No Condition: Stable Instructions: Musculoskeletal Pain (ED) Additional Instructions: return if worse Referrals: [facility],MD [Primary Care Provider] - 3-5 Days [facility] [Provider Group] - 3-5 Days [facility] [Provider Group] - 3-5 Days Time of Disposition: 00:44
[2019-06-20] MEDS ORDERED: HYDROcodone/ACETAMINOPHEN 10-325MG TAB PO ONE (00:57)
[2019-06-20] MEDS ORDERED: ONDANSETRON 4 MG ODT TAB PO ONE (00:58)
[2019-06-20 01:05] VITALS: BP 128/76
== END 2019-06-20 01:13 | disposition home or self-care (01) ==
LOC: ED 21:22
DX: M79.601 Pain in right arm (principal); F31.9 Bipolar disorder, unspecified; K21.9 Gastro-esophageal reflux disease without esophagitis; Z79.899 Other long term (current) drug therapy; Z98.890 Other specified postprocedural states
CPT/HCPCS: 36415; 71046; 80048; 84484; 85025; 93005; 93010; Q0162

== ENCOUNTER 2019-06-20 09:03 | Emergency (ER) | payer MEDICAID ==
[2019-06-20 09:12] VITALS: BP 123/82
[2019-06-20] MEDS ORDERED: FAMOTIDINE 20 MG TAB PO ONE (09:26)
[2019-06-20] MEDS ORDERED: ONDANSETRON 4 MG ODT TAB PO ONE (09:26)
--- NOTE | 2019-06-20 11:07 | Ultrasound Report ---
ULTRASOUND ABDOMEN, LIMITED (RIGHT UPPER QUADRANT) INDICATION: ND after eating. COMPARISON: None available. FINDINGS: Pancreas: Visualized portion shows no significant abnormality. Liver: Normal. Gallbladder: Contracted, otherwise unremarkable. Bile ducts: Normal. Common Bile Duct measures 5 mm. Free fluid: None. Additional Findings: None. IMPRESSION: 1. No sonographic abnormality of the right upper quadrant. Signer Name: Braeden Paiz MD Signed: 06/20/2019 11:02 AM Workstation Name: [id number]
[2019-06-20] MEDS ORDERED: ACETAMINOPHEN 325 MG TAB PO ONE (11:38)
--- NOTE | 2019-06-20 11:43 | Emergency Department Report ---
ED Abdominal Pain HPI - General Chief Complaint: Abdominal Pain Stated Complaint: STOMACH PAIN Time Seen by Provider: 06/20/19 09:24 Source: patient Mode of arrival: Ambulatory Limitations: No Limitations - History of Present Illness Initial Comments: Patient is a 63-year-old [place] female who is presenting with 3 weeks of off and on nausea vomiting. Patient states that she has some mild epigastric discomfort and has vomiting after eating. This then worsened over the last 3 weeks. Patient was here yesterday for right arm pain but failed to mention this to the physician. Patient's denies fevers chills diarrhea cough cold congestion at this time. - Related Data Home Medications Medication Instructions Recorded Confirmed Last Taken Gabapentin 300 mg PO Q8HR 09/03/17 09/03/17 Unknown Ranitidine HCl [Heartburn Relief] 150 mg PO BID 09/03/17 09/03/17 Unknown Previous Rx's Medication Instructions Recorded Last Taken Type Abacavir [Ziagen TAB] 300 mg PO BID #60 tablet 09/06/17 Unknown Rx Acetaminophen [Acetaminophen TAB] 325 mg PO Q4H PRN #30 tablet 09/06/17 Unknown Rx Ipratropium/Albuterol Sulfate 1 ampul IH Q6HRT PRN #30 day 09/06/17 Unknown Rx [DUONEB *Not for PRN Use*] Quetiapine Fumarate [SEROquel Xr] 600 mg PO QHS #30 day 09/06/17 Unknown Rx Trazodone HCl [traZODone] 300 mg PO QHS #30 day 09/06/17 Unknown Rx lamiVUDine [Epivir] 150 mg PO BID #60 tablet 09/06/17 Unknown Rx levETIRAcetam [Keppra TAB] 500 mg PO BID #60 tablet 09/06/17 Unknown Rx levoFLOXacin [Levaquin] 750 mg PO QDAY #5 day 09/06/17 Unknown Rx oxyCODONE /ACETAMINOPHEN [Percocet 1 tab PO Q6H PRN #20 tablet 09/06/17 Unknown Rx 5/325 mg] Ranitidine HCl [Acid Control] 150 mg PO BID #60 tablet 02/08/18 Unknown Rx Acetaminophen/Codeine [Tylenol 1 tab PO Q6H PRN #15 tab 06/20/19 Unknown Rx /Codeine # 3 tab] Famotidine [Pepcid] 40 mg PO QHS #10 tablet 06/20/19 Unknown Rx Ondansetron [Zofran Odt] 4 mg PO Q8HR #10 tab.rapdis 06/20/19 Unknown Rx Allergies Allergy/AdvReac Type Severity Reaction Status Date / Time No Known Allergies Allergy Verified 02/08/18 08:16 ED Review of Systems ROS: Stated complaint: STOMACH PAIN Other details as noted in HPI Comment: All other systems reviewed and negative ED Past Medical Hx - Past Medical History Hx GERD: Yes Hx Renal Disease: Yes Hx Seizures: Yes Hx Psychiatric Treatment: Yes (bipolar) Hx HIV: Yes Additional medical history: hiv - Surgical History Additional Surgical History: hernia, - Social History Smoking Status: Never Smoker Substance Use Type: None - Medications Home Medications: Home Medications Medication Instructions Recorded Confirmed Last Taken Type Gabapentin 300 mg PO Q8HR 09/03/17 09/03/17 Unknown History Ranitidine HCl [Heartburn Relief] 150 mg PO BID 09/03/17 09/03/17 Unknown History Abacavir [Ziagen TAB] 300 mg PO BID #60 tablet 09/06/17 Unknown Rx Acetaminophen [Acetaminophen TAB] 325 mg PO Q4H PRN #30 tablet 09/06/17 Unknown Rx Ipratropium/Albuterol Sulfate 1 ampul IH Q6HRT PRN #30 day 09/06/17 Unknown Rx [DUONEB *Not for PRN Use*] Quetiapine Fumarate [SEROquel Xr] 600 mg PO QHS #30 day 09/06/17 09/03/17 Unknown Rx Trazodone HCl [traZODone] 300 mg PO QHS #30 day 09/06/17 09/03/17 Unknown Rx lamiVUDine [Epivir] 150 mg PO BID #60 tablet 09/06/17 Unknown Rx levETIRAcetam [Keppra TAB] 500 mg PO BID #60 tablet 09/06/17 Unknown Rx levoFLOXacin [Levaquin] 750 mg PO QDAY #5 day 09/06/17 Unknown Rx oxyCODONE /ACETAMINOPHEN [Percocet 1 tab PO Q6H PRN #20 tablet 09/06/17 Unknown Rx 5/325 mg] Ranitidine HCl [Acid Control] 150 mg PO BID #60 tablet 02/08/18 Unknown Rx Acetaminophen/Codeine [Tylenol 1 tab PO Q6H PRN #15 tab 06/20/19 Unknown Rx /Codeine # 3 tab] Famotidine [Pepcid] 40 mg PO QHS #10 tablet 06/20/19 Unknown Rx Ondansetron [Zofran Odt] 4 mg PO Q8HR #10 tab.rapdis 06/20/19 Unknown Rx ED Physical Exam - General Limitations: No Limitations General appearance: alert, in no apparent distress - Head Head exam: Present: atraumatic, normocephalic - Eye Eye exam: Present: normal appearance, PERRL, EOMI - ENT ENT exam: Present: mucous membranes moist - Neck Neck exam: Present: normal inspection - Respiratory Respiratory exam: Present: normal lung sounds bilaterally. Absent: respiratory distress, wheezes, rales, rhonchi - Cardiovascular Cardiovascular Exam: Present: regular rate, normal rhythm, normal heart sounds. Absent: systolic murmur, diastolic murmur, rubs, gallop - GI/Abdominal GI/Abdominal exam: Present: soft, tenderness (epigastric), normal bowel sounds. Absent: distended, guarding, rebound - Extremities Exam Extremities exam: Present: normal inspection - Back Exam Back exam: Present: normal inspection - Neurological Exam Neurological exam: Present: alert, oriented X3 - Psychiatric Psychiatric exam: Present: normal affect, normal mood - Skin Skin exam: Present: warm, dry, intact, normal color. Absent: rash ED Course Vital Signs 06/20/19 06/20/19 09:10 09:21 Temperature 99.2 F Pulse Rate 88 Respiratory 18 Rate Blood Pressure 123/82 O2 Sat by Pulse 96 Oximetry ED Medical Decision Making - Lab Data Ancillary studies were done yesterday regarding the patient's left arm pain as the patient had studies performed in attempt to rule out a DVT. Laboratory studies were unremarkable and were not repeated on this visit. - Medical Decision Making Ultrasound of the abdomen shows no evidence of cholelithiasis. Patient states on further questioning that she has seen a GI doctor many many years ago and she will be referred back to GI. Patient has been ruled out for gallstones per ultrasound. Patient's laboratory studies are inconsistent with hepatitis or pancreatitis. Patient will be referred to GI will be given medication for symptomatic relief. Critical care attestation.: If time is entered above; I have spent that time in minutes in the direct care of this critically ill patient, excluding procedure time. ED Disposition Clinical Impression: Gastritis Qualifiers: Gastritis type: unspecified gastritis Chronicity: acute Gastritis bleeding: without bleeding Qualified Code(s): K29.00 - Acute gastritis without bleeding Disposition: TO HOME OR SELFCARE Is pt being admited?: No Does the pt Need Aspirin: No Condition: Stable Instructions: Abdominal Pain (ED), Gastritis (ED), Diet for Ulcers and Gastritis (ED) Referrals: [facility] [Provider Group] - 3-5 Days Time of Disposition: 11:44
== END 2019-06-20 12:04 | disposition home or self-care (01) ==
LOC: ED 09:03
DX: K29.70 Gastritis, unspecified, without bleeding (principal); K21.9 Gastro-esophageal reflux disease without esophagitis; F31.9 Bipolar disorder, unspecified; Z21 Asymptomatic human immunodeficiency virus [HIV] infection status; Z79.899 Other long term (current) drug therapy
CPT/HCPCS: 76705; Q0162